=== PATIENT | female | born 1985 | race Two or more races ===

== ENCOUNTER 2022-03-03 13:45 | Inpatient (IN) | payer MEDICARE, MEDICAID, SELFPAY ==
[2022-03-03 13:59] VITALS: PULSE 83; RESP 18; TEMP 36.7; O2SAT 98; BMI 32.1
--- NOTE | 2022-03-03 13:59 | ED.PSYCH ---
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 Ethyl Alcohol mg/dL Influenza Type A (PCR) NEGATIVE (Negative) Influenza Type B (PCR) NEGATIVE (Negative) RSV RNA Qual (PCR) NEGATIVE (Negative) SARS-CoV-2 RNA (RT-PCR) NEGATIVE (Negative) <Fracisco Posey MD - Last Filed: 03/04/22 07:04> Discharge Plan Discharge Clinical Impression: Depression, Post-traumatic stress disorder <ADITYA Jones - Last Filed: 03/03/22 14:04> Patient Disposition: Still a Patient <ADITYA Jones - Last Filed: 03/03/22 14:04> Prescriptions: No Action cetirizine 10 mg tablet 1 tab PO DAILY fluticasone propionate 50 mcg/actuation spray,suspension 1 spray intranasal BID <ADITYA Jones - Last Filed: 03/03/22 14:04> Interventions: [place]-Suicide Risk Severity Scale Last Done: 03/04/22 05:25 <ADITYA Jones - Last Filed: 03/03/22 14:04>
--- NOTE | 2022-03-03 14:03 | ECG_ITS ---
Test Reason : SUBSTANCE ABUSE Blood Pressure : / mmHG Vent. Rate : 063 BPM Atrial Rate : 063 BPM P-R Int : 158 ms QRS Dur : 074 ms QT Int : 388 ms P-R-T Axes : 040 015 022 degrees QTc Int : 397 ms Artifact in tracing Normal sinus rhythm Likely normal EKG No previous ECGs available Referred By: Chasity Fong Electronically Signed By:SHIRA SALAS
[2022-03-03 14:17] LABS: MANUAL DIFF FLAG NO
[2022-03-03 14:22] LABS: Basophils Absolute Auto 0.1 X10*3/uL (0.0-0.2); Basophils Percent Auto 0.7 % (0-2); Eosinophils Absolute Auto 0.1 X10*3/uL (0.0-0.4); Eosinophils Percent Auto 1.1 % (0-4); Hematocrit 40.9 % (37.0-47.0); Hemoglobin 13.6 g/dl (12.0-16.0); Imm Gran Abs Auto 0.07 X10*3/uL (0.00-0.03); Imm Gran Pct Auto 0.5 % (0.0-0.4); Lymphocytes Absolute Auto 2.3 X10*3/uL (1.2-4.9); Lymphocytes Percent Auto 17.7 % (20-40); Mean Corpuscular HGB Conc 33.3 g/dl (31.0-35.0); Mean Corpuscular Hemoglobin 30.6 pg (27.0-33.0); Mean Corpuscular Volume 91.9 fL (80.0-98.0); Mean Platelet Volume 8.8 fL (9.4-12.3); Monocytes Absolute Auto 0.8 X10*3/uL (0.1-1.2); Monocytes Percent Auto 6.1 % (2-11); Neutrophils Absolute Auto 9.8 x10*3/uL (2.0-8.3); Neutrophils Percent Auto 73.9 % (45-73); Platelet Count 431 X10*3/uL (160-400); Red Blood Count 4.45 X10*6/uL (4.20-5.50); Red Cell Distribution Width 12.8 % (11.0-16.0); White Blood Count 13.2 X10*3/uL (4.8-10.8)
[2022-03-03 14:33] LABS: INTERNATIONAL NORM RATIO 1.1 (0.9-1.1); Prothrombin Time 12.6 SEC (10.0-13.1)
[2022-03-03 14:47] LABS: Alanine Aminotransferase 12 U/L (0-31); Albumin Level 4.3 g/dL (3.5-5.0); Alkaline Phosphatase 87 U/L (39-117); Anion Gap 11 (12-20); Aspartate Amino Transferase 21 U/L (5-31); Bilirubin Total 0.5 mg/dL (0.0-1.0); Blood Urea Nitrogen 8 mg/dL (9-16); Calcium 11.2 mg/dL (8.4-10.2); Carbon Dioxide 24 mmol/L (22-29); Chloride 107 mmol/L (96-108); Creatinine Clr Calc Pharmacy 123.3; Estimated Glomerular Filt Rate > 60; Ethanol < 10 mg/dL; Glucose Random 106 mg/dL (60-115); HCG Quantitative < 2 mIU/mL; Lipase 29 U/L (8-78); Magnesium 2.2 mg/dL (1.6-2.6); Potassium 4.3 mmol/L (3.3-5.1); Sodium 138 mmol/L (135-145); Total Protein 7.3 g/dL (6.5-8.0)
[2022-03-03 14:59] LABS: Influenza A PCR NEGATIVE (Negative); Influenza B PCR NEGATIVE (Negative); Resp Syncy Virus RNA Qual PCR NEGATIVE (Negative); SARS COV2 PCR INHOUSE NEGATIVE (Negative)
[2022-03-03 16:37] VITALS: RESP 18
--- NOTE | 2022-03-03 16:57 | PC.NURSE ---
Pt reports taking minipress/klonopin/seroquel/gabapentin/metformin/protonix/viseral/ativan. Unknown dosage. Last hospitalization. Per pt she does not use regular pharmacy.
[2022-03-03 16:59] LABS: Appearance Urine Turbid; Color Urine Yellow; Glucose Urine UA Negative (Negative); Leukocyte Esterase Urine Large (3+) (Negative); Nitrite Urine Negative (Negative); PH 6.5 (5.0-9.0); Specific Gravity - Urine 1.025 (1.005-1.025); UMIC TRIGGER UACC YES; Urine Blood Negative (Negative); Urine Ketones Trace mg/dL (Negative); Urine Protein Trace mg/dL (Neg-Trace)
[2022-03-03 17:05] LABS: Bacteria Urine 4+ (None Seen); Calcium Oxalate Crystals Urine Present; Hyaline Casts Urine 0-2 /LPF (0-2); Squamous Epithelial Cell Urine >20 /HPF (0-2); UACC Culture Trigger YES; WBC Urine >50 /HPF (0-5)
[2022-03-03 17:12] LABS: Amphetamine Screen Urine Not Detected (Not Detect); Barbiturates, Urine Not Detected (Not Detect); Benzodiazepines Screen Urine Not Detected (Not Detect); Cannabinoid Screen Urine POSITIVE (Not Detect); Cocaine Screen Urine POSITIVE (Not Detect); Fentanyl, urine POSITIVE (Not Detect); Opiate Screen Urine Not Detected (Not Detect); Phencyclidine Screen Urine Not Detected (Not Detect)
[2022-03-03] MEDS: LORazepam 1 MG TABLET PO (17:40)
[2022-03-03] MEDS: QUEtiapine Fumarate 50 MG TABLET PO (17:41)
[2022-03-03] MEDS: Nitrofurantoin Monohyd/M-Cryst 100 MG CAPSULE PO (20:13)
--- NOTE | 2022-03-04 05:26 | PC.NURSE ---
Patient slept through the night, no distress observed/reported, behavior isolative and non concerning, med rec completed/pending provider's approval, Medical record released form faxed to [facility] and no medical record received thus far, patient was assessed by care team disposition is Voluntary inpatient bed search, VSS, patient is + for UTI, Macrobid 100 mg BID was initiated, patient received her first dose last night, will continue to monitor.
[2022-03-04 06:27] VITALS: BP 131/84; PULSE 62; RESP 16; TEMP 36.6; O2SAT 98
[2022-03-04] MEDS: Nitrofurantoin Monohyd/M-Cryst 100 MG CAPSULE PO ×2 (08:48→20:06)
[2022-03-04] MEDS: LORazepam 1 MG TABLET PO (09:40)
[2022-03-04 16:08] LABS: CT PCR NOT DETECTED (Not Detect.)
[2022-03-04 16:09] LABS: NG PCR DETECTED (Not Detect.)
[2022-03-04] MEDS: QUEtiapine Fumarate 100 MG TABLET PO (20:06)
[2022-03-04] MEDS: LORazepam 1 MG TABLET 2 MG PO (20:07)
[2022-03-04 20:57] VITALS: BP 136/94; PULSE 81; RESP 18; TEMP 36.8; O2SAT 100
--- NOTE | 2022-03-04 21:25 | PC.NURSE ---
Patient was agitated over her medication, asking for her nighttime medication Serequel 300 mg which according to the patient she received last night when explained she has not received serequel last patient got loud and when asked to keep her voice low she got louder, she wants to speak with hospital management, charge nurse intervention requested, charge nurse spoke with patient, patient is not aware of what dose of Serequel she takes, provider notified/ordered Ativan 2 mg PO and Serequel 100 mg po/administered as ordered pending effect, requested Ed field secretary try one more time to get patient medical record from the [facility], this time we got received discharge paper work from [facility], patient was discharged to [facility] on 02/20/22, patient's pharmacy claim history shows no medication was picked up recently, however med rec completed based on discharge medication list, medical history also was updated, medical record from [facility] is in patient's chart for further reference, patient is currently resting quietly in her room, will continue to monitor.
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
[2022-03-05 06:49] VITALS: BP 108/56; PULSE 64; RESP 16; TEMP 36.9; O2SAT 98
[2022-03-05] MEDS: Nitrofurantoin Monohyd/M-Cryst 100 MG CAPSULE PO ×2 (07:35→20:47)
[2022-03-05] MEDS: QUEtiapine Fumarate 100 MG TABLET PO (16:12)
--- NOTE | 2022-03-05 18:37 | MHC.CARE ---
Care Team has exhausted bed search for pt.
[2022-03-05] MEDS: QUEtiapine Fumarate 200 MG TABLET PO (20:47)
[2022-03-05 21:11] VITALS: BP 116/81; PULSE 93; RESP 18; TEMP 36.8; O2SAT 98
--- NOTE | 2022-03-05 22:15 | PC.NURSE ---
Pt aox3 in no apparent distress. Pt medicated as ordered. Aware of plan of care. Will continue to monitor.
[2022-03-06 06:05] VITALS: BP 120/80; PULSE 75; RESP 16; TEMP 36.9; O2SAT 98
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
--- NOTE | 2022-03-06 07:22 | PC.NURSE ---
patient appears to remain asleep at present respirations are even and unlabored patient appears in no distress
[2022-03-06] MEDS: Gabapentin 300 MG CAPSULE 600 MG PO ×3 (08:46→21:08)
[2022-03-06] MEDS: Nitrofurantoin Monohyd/M-Cryst 100 MG CAPSULE PO ×2 (08:46→21:08)
[2022-03-06] MEDS: metFORMIN HCl 500 MG TABLET PO (08:46)
[2022-03-06] MEDS: Prazosin HCL 1 MG CAPSULE PO ×3 (08:46→21:08)
[2022-03-06] MEDS: Fluticasone Propionate Nasal 16 GM SPRAY 1 SPRAY NOSTRIL-B (08:46)
[2022-03-06] MEDS: Loratadine 10 MG TABLET PO (08:46)
[2022-03-06] MEDS: Omeprazole 20 MG CAPSULE.DR PO (08:47)
[2022-03-06] MEDS: clonazePAM 0.5 MG TABLET PO ×2 (08:47→21:08)
[2022-03-06 17:55] VITALS: BP 128/88; PULSE 77; RESP 16; TEMP 36.5
[2022-03-06] MEDS: hydrOXYzine HCL 50 MG TABLET PO (17:56)
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
[2022-03-06] MEDS: Prazosin HCL 1 MG CAPSULE 2 MG PO (21:08)
[2022-03-06] MEDS: QUEtiapine Fumarate 300 MG TABLET PO (21:08)
[2022-03-06] MEDS: Melatonin 3 MG TABLET 9 MG PO (21:08)
[2022-03-07 08:27] LABS: Estimated Average Glucose 94 mg/dL; Hemoglobin A1c % 4.9 %
[2022-03-07 08:30] VITALS: BP 116/67; PULSE 75; TEMP 36.7; O2SAT 100
[2022-03-07] MEDS: Nitrofurantoin Monohyd/M-Cryst 100 MG CAPSULE PO ×2 (08:35→20:40)
[2022-03-07] MEDS: metFORMIN HCl 500 MG TABLET PO (08:35)
[2022-03-07] MEDS: Omeprazole 20 MG CAPSULE.DR PO (08:35)
[2022-03-07] MEDS: Loratadine 10 MG TABLET PO (08:35)
[2022-03-07] MEDS: clonazePAM 0.5 MG TABLET PO ×2 (08:35→20:40)
[2022-03-07] MEDS: Fluticasone Propionate Nasal 16 GM SPRAY 1 SPRAY NOSTRIL-B ×2 (08:35→20:42)
[2022-03-07] MEDS: Gabapentin 300 MG CAPSULE 600 MG PO ×3 (08:36→20:39)
[2022-03-07] MEDS: Prazosin HCL 1 MG CAPSULE PO ×3 (08:36→20:39)
[2022-03-07 08:54] LABS: Cholesterol 143 mg/dL; HDL Cholesterol 43 mg/dL; LDL Cholesterol Calculated 75 mg/dl; Magnesium 1.9 mg/dL (1.6-2.6); Triglycerides 127 mg/dL
[2022-03-07 09:08] LABS: Thyroid Stimulating Hormone 1.46 uIU/mL (0.32-4.0)
[2022-03-07 13:03] LABS: Free T4 (Free Thyroxine) 0.87 ng/dL (0.71-1.85)
[2022-03-07] MEDS: hydrOXYzine HCL 50 MG TABLET PO ×2 (13:08→21:00)
[2022-03-07] MEDS: Albuterol Sulfate 90 MCG 8 GM INHALER 2 PUFF INHALE ×3 (13:08→20:38)
[2022-03-07 15:34] LABS: Folate 10.5 ng/mL (> or = 4.0); Vitamin B12 529 pg/mL (200-900)
--- NOTE | 2022-03-07 16:05 | HO.PSYADMNOT ---
HPI Date of Service: 03/07/22 Chief Complaint: Bipolar D/O w/Psychotic Features Depressed PTSD Sources of Information: patient interviewed, chart reviewed and crisis/core team assessment reviewed HPI Subjective Notes: [place] Warning and Conditional Voluntary Healthcare Proxy: No Guardianship: No Medical Problems Affecting Mental Status: No Narrative: 36 yo female, hx of bipolar disorder, PTSD, Autism reports an increase in sx of lability, anxiety, depression. I think I need a step down. Reports she feels ill equipped to live on her own due to not knowing what to do or how to handle life . States she has lost everything, and I don't know how to mange this. Reports no current supports, being alone, without medications, with recent discharge from [facility]. Has no PCP, out patient assignments and reports feeling not capable of managing at this time. Past Psychiatric History: IP: 40 admits between ages 9 to 27 4 admits since coming to [place] in Dec 2021 OP: Denies Trials: Several Medical Evaluation Reviewed: Yes [facility] Medical History (Updated 03/07/22 @ 18:16 by Ashlee Cyr, CHANELL) Amphetamine use disorder, moderate Autism Bipolar disorder Bipolar I disorder with anderson Cannabis use disorder Cocaine use disorder History of autism spectrum disorder Polysubstance use disorder Post traumatic stress disorder (PTSD) Schizoaffective disorder, bipolar type Tobacco use disorder Narrative: GERD IBS Asthma Arthritis Family History: mental health issues Social History: Born in [place] High school graduate Three children, with DCF Substance History: nicotine, cannabis, cocaine, amphetamines Trauma History: affirms Diagnostics Vital Signs (24Hr): Vital Signs - 24 hr 03/06/22 17:55 03/07/22 08:30 Temperature 97.7 F 98.1 F Pulse Rate 77 75 Respiratory Rate 16 Blood Pressure 128/88 116/67 Pulse Oximetry 100 Oxygen Delivery Method Room Air BMI result Body Mass Index 32.1 Labs Results: 03/03/22 14:14 03/03/22 14:14 Labs: Laboratory Results - last 48 hr 03/07/22 03/07/22 03/07/22 08:06 08:06 08:06 Estimat Average Glucose 94 Hemoglobin A1c % 4.9 Magnesium 1.9 Triglycerides 127 Cholesterol 143 LDL Cholesterol, Calc 75 HDL Cholesterol 43 Vitamin B12 529 Folate 10.5 TSH 1.46 Free T4 0.87 Meds/Allergies Meds Home Medications Medication Instructions Recorded Confirmed Type cetirizine 10 mg tablet 1 tab PO DAILY 03/03/22 03/03/22 History fluticasone propionate 50 1 spray intranasal BID 03/03/22 03/03/22 History mcg/actuation nasal spray,suspension albuterol 90 mcg/actuation aerosol 2 mcg inhalation QID 03/04/22 03/04/22 History inhaler clonazepam 0.5 mg tablet 0.5 mg PO BID 03/04/22 03/04/22 History gabapentin 300 mg capsule 600 mg PO TID 03/04/22 03/04/22 History hydroxyzine pamoate 50 mg capsule 50 mg PO QID PRN Anxiety 03/04/22 03/04/22 History melatonin 3 mg tablet 9 mg PO BEDTIME PRN Insomnia 03/04/22 03/04/22 History metformin 500 mg tablet 500 mg PO DAILY 03/04/22 03/04/22 History pantoprazole 40 mg tablet,delayed 40 mg PO DAILY 03/04/22 03/04/22 History release prazosin 1 mg capsule 1 mg PO TID 03/04/22 03/04/22 History prazosin 2 mg capsule 2 mg PO BEDTIME 03/04/22 03/04/22 History quetiapine 100 mg tablet 100 mg PO QAM 03/04/22 03/04/22 History quetiapine 300 mg tablet 300 mg PO BEDTIME 03/04/22 03/04/22 History trazodone 50 mg tablet 50 mg PO BEDTIME PRN Insomnia 03/04/22 03/04/22 History Allergies Allergies Allergy/AdvReac Type Severity Reaction Status Date / Time acetaminophen [From [place]] Allergy Palpitation Verified 03/03/22 17:02 s amitriptyline Allergy Palpitation Verified 03/03/22 17:02 s imipramine Allergy Palpitation Verified 03/03/22 17:02 s iodine Allergy Rash Verified 03/03/22 17:02 phenyltoloxamine [From [facility]] Allergy Palpitation Verified 03/03/22 17:02 s salicylamide [From [place]ac] Allergy Palpitation Verified 03/03/22 17:02 s Mental Status Exam Mental Status Exam Patient Appearance: Appropriate Patient Orientation: Person, Place, Time and Situation Level of Consciousness: Alert Patient Behavior: Talkative and Good Eye Contact Mood Description: Blunted Affect Description: Blunted Patient Cognition Impaired: No Ability to Follow Directions: Good Speech Pattern: Spontaneous Speech Memory Description: Episodic Impaired Hallucinations: None Delusions: Not Present Perceptual Disturbances: Depersonalization and Derealization Thought Process: Distracted Thought Content: positive for [place] and positive for Circumstantial Depressive Symptoms: Increased Anxiety, Diff. Making Decisions and Difficulty Concentrating Abnormal Motor Activity Signs and Symptoms: Restlessness Judgement: Fair Assessment & Plan Assessment & Plan (1) Post-traumatic stress disorder: Status: Acute Code(s): F43.10 - Post-traumatic stress disorder, unspecified (2) Bipolar disorder: Status: Acute Code(s): F31.9 - Bipolar disorder, unspecified (3) Polysubstance use disorder: Status: Acute Code(s): F19.90 - Other psychoactive substance use, unspecified, uncomplicated (4) Autism: Status: Acute Code(s): F84.0 - Autistic disorder Plan 36 yo female, hx of PTSD, Bipolar Disorder, ASD,Polysubstance Use Disorder. Recent discharge from [facility], stopped meds after discharge. Reports she is in need of more follow up treatment post hospitalization, a step down . Plan: Re-establish regime and assess efficacy Collateral contacts Discuss [facility] application for services with team Devin Gallo prn Debrox ear drops bid Patient educated on: medication risk/benefits and therapeutic strategies Informed Consent: further education needed Reason for continued inpatient stay Substantial Risk for: inability to function and rapid decompensation Statement Statement: I have reviewed the history and physical and performed a pertinent examination on my patient. No changes have occurred unless specified. If the History and Physical was not performed prior to admission, the Hospitalist's service will be consulted for completing the admission physical. Time Spent With Patient Time: Total time managing care of this patient today 50____ minutes.
[2022-03-07] MEDS: polyethylene glycoL 3350 17 GM POWD.PACK PO (17:24)
[2022-03-07] MEDS: Prazosin HCL 1 MG CAPSULE 2 MG PO (20:39)
[2022-03-07] MEDS: Docusate Sodium 100 MG CAPSULE PO (20:40)
[2022-03-07] MEDS: Carbamide Peroxide 6.5% Otic 15 ML DRPBTL 5 DROP EAR-BOTH (20:40)
[2022-03-07] MEDS: QUEtiapine Fumarate 300 MG TABLET PO (20:40)
[2022-03-07 20:45] VITALS: BP 137/87; PULSE 105; RESP 18; TEMP 36.2; O2SAT 99
[2022-03-07] MEDS: Melatonin 3 MG TABLET 9 MG PO (20:59)
[2022-03-08] MEDS: Gabapentin 300 MG CAPSULE 600 MG PO ×3 (08:28→21:04)
[2022-03-08] MEDS: Omeprazole 20 MG CAPSULE.DR PO (08:28)
[2022-03-08] MEDS: Nitrofurantoin Monohyd/M-Cryst 100 MG CAPSULE PO ×2 (08:28→21:03)
[2022-03-08] MEDS: Prazosin HCL 1 MG CAPSULE PO ×3 (08:28→21:04)
[2022-03-08] MEDS: clonazePAM 0.5 MG TABLET PO ×2 (08:28→21:04)
[2022-03-08] MEDS: Loratadine 10 MG TABLET PO (08:28)
[2022-03-08] MEDS: metFORMIN HCl 500 MG TABLET PO (08:28)
[2022-03-08 08:31] VITALS: BP 102/59; PULSE 63; TEMP 36.9; O2SAT 99
[2022-03-08] MEDS: Albuterol Sulfate 90 MCG 8 GM INHALER 2 PUFF INHALE ×3 (09:22→16:01)
[2022-03-08] MEDS: Fluticasone Propionate Nasal 16 GM SPRAY 1 SPRAY NOSTRIL-B ×2 (09:23→21:09)
[2022-03-08] MEDS: polyethylene glycoL 3350 17 GM POWD.PACK PO (09:26)
[2022-03-08] MEDS: Carbamide Peroxide 6.5% Otic 15 ML DRPBTL 5 DROP EAR-BOTH ×2 (09:50→21:09)
[2022-03-08] MEDS: hydrOXYzine HCL 50 MG TABLET PO ×3 (13:10→21:02)
[2022-03-08 14:52] VITALS: BP 132/68; PULSE 101
[2022-03-08 16:30] VITALS: BP 132/68; PULSE 101
--- NOTE | 2022-03-08 18:24 | HO.PSYCHPN ---
Subjective Subjective Date of Service: 03/08/22 Reason For Visit: Bipolar D/O w/Psychotic Features Depressed PTSD Subjective Notes: Conditional Voluntary Healthcare Proxy: No Guardianship: No Medical Problems Affecting Mental Status: No Interim History: Medication review with pt who asks to increase HS Prazosin to 3 mg which she takes at home. Review of Seroquel dosing and efficacy. Reports feeling safe on the unit. Discussed some of the difficulties she has relating to new people and situations Medication Compliance: Yes Side effects from medications: No Attending Groups: Intermittent Review of Systems Acute medical concerns: No Medical Review of Systems: unchanged Mental Status Exam Mental Status Exam Patient Appearance: Appropriate Patient Orientation: Person, Place, Time and Situation Level of Consciousness: Alert Patient Behavior: Talkative and Good Eye Contact Mood Description: Blunted Affect Description: Blunted Patient Cognition Impaired: No Ability to Follow Directions: Good Speech Pattern: Spontaneous Speech Memory Description: Episodic Impaired Hallucinations: None Delusions: Not Present Perceptual Disturbances: Depersonalization and Derealization Thought Process: Distracted Thought Content: positive for [place] and positive for Circumstantial Depressive Symptoms: Increased Anxiety, Diff. Making Decisions and Difficulty Concentrating Abnormal Motor Activity Signs and Symptoms: Restlessness Judgement: Fair Diagnostics Vital Signs (24Hr): Vital Signs - 24 hr 03/07/22 20:45 03/08/22 08:31 03/08/22 14:52 Temperature 97.1 F 98.5 F Pulse Rate 105 H 63 101 H Respiratory Rate 18 Blood Pressure 137/87 102/59 L 132/68 Pulse Oximetry 99 99 Oxygen Delivery Method Room Air Room Air 03/08/22 16:30 Temperature Pulse Rate 101 H Respiratory Rate Blood Pressure 132/68 Pulse Oximetry Oxygen Delivery Method BMI result Body Mass Index 32.1 Labs Results: 03/03/22 14:14 03/03/22 14:14 Labs: Laboratory Results - last 48 hr 03/07/22 03/07/22 03/07/22 08:06 08:06 08:06 Estimat Average Glucose 94 Hemoglobin A1c % 4.9 Magnesium 1.9 Triglycerides 127 Cholesterol 143 LDL Cholesterol, Calc 75 HDL Cholesterol 43 Vitamin B12 529 Folate 10.5 TSH 1.46 Free T4 0.87 Medications Medications Current Medications Al Hydroxide/Mg Hydroxide (Magnesium Hydrox/Alum Hydrox 30 Ml Oral.Susp) 30 ml PO Q6H PRN PRN Reason: Heartburn/Nausea Albuterol Sulfate (Albuterol Sulfate 90 Mcg 8 Gm Inhaler) 2 puff INHALE RQID [facility] Last Admin: 03/08/22 16:01 Dose: 2 puff Carbamide Peroxide (Carbamide Peroxide 6.5% Otic 15 Ml Drpbtl) 5 drop EAR-BOTH BID [facility] Stop: 03/11/22 17:57 Last Admin: 03/08/22 09:50 Dose: 5 drop Clonazepam (Clonazepam 0.5 Mg Tablet) 0.5 mg PO BID [facility] Last Admin: 03/08/22 08:28 Dose: 0.5 mg Docusate Sodium (Docusate Sodium 100 Mg Capsule) 100 mg PO BEDTIME [facility] Last Admin: 03/07/22 20:40 Dose: 100 mg Fluticasone Propionate (Fluticasone Propionate Nasal 16 Gm [place]) 1 spray NOSTRIL-B BID [facility] Last Admin: 03/08/22 09:23 Dose: 1 spray Gabapentin (Gabapentin 300 Mg Capsule) 600 mg PO TID [facility] Last Admin: 03/08/22 14:38 Dose: 600 mg Hydroxyzine HCl (Hydroxyzine Hcl 50 Mg Tablet) 50 mg PO QID PRN PRN Reason: Anxiety Last Admin: 03/08/22 18:18 Dose: 50 mg Loratadine (Loratadine 10 Mg Tablet) 10 mg PO DAILY [facility] Last Admin: 03/08/22 08:28 Dose: 10 mg Magnesium Hydroxide (Milk Of Magnesia 30 Ml Oral.Susp) 30 ml PO DAILY PRN PRN Reason: Constipation Melatonin (Melatonin 3 Mg Tablet) 9 mg PO BEDTIME PRN PRN Reason: Insomnia Last Admin: 03/07/22 20:59 Dose: 9 mg Metformin HCl (Metformin Hcl 500 Mg Tablet) 500 mg PO DAILY [facility] Last Admin: 03/08/22 08:28 Dose: 500 mg Nitrofurantoin Macrocrystals (Nitrofurantoin Monohyd/M-Cryst 100 Mg Capsule) 100 mg PO BID [facility] Last Admin: 03/08/22 08:28 Dose: 100 mg Omeprazole (Omeprazole 20 Mg Capsule.Dr) 20 mg PO DAILY [facility] Last Admin: 03/08/22 08:28 Dose: 20 mg Polyethylene Glycol (Polyethylene Glycol 3350 17 Gm Powd.Pack) 17 gm PO DAILY PRN PRN Reason: Constipation Last Admin: 03/08/22 09:26 Dose: 17 gm Prazosin HCl (Prazosin Hcl 1 Mg Capsule) 1 mg PO TID GHULAM; Protocol Last Admin: 03/08/22 14:38 Dose: 1 mg Prazosin HCl (Prazosin Hcl 1 Mg Capsule) 2 mg PO BEDTIME GHULAM; Protocol Last Admin: 03/07/22 20:39 Dose: 2 mg Quetiapine Fumarate (Quetiapine Fumarate 200 Mg Tablet) 200 mg PO BEDTIME GHULAM Last Admin: 03/07/22 20:08 Dose: Not Given Quetiapine Fumarate (Quetiapine Fumarate 300 Mg Tablet) 300 mg PO BEDTIME GHULAM Last Admin: 03/07/22 20:40 Dose: 300 mg Trazodone HCl (Trazodone Hcl 50 Mg Tablet) 50 mg PO BEDTIME PRN PRN Reason: Insomnia Allergies Allergies Allergy/AdvReac Type Severity Reaction Status Date / Time acetaminophen [From [place]ac] Allergy Palpitation Verified 03/03/22 17:02 s amitriptyline Allergy Palpitation Verified 03/03/22 17:02 s imipramine Allergy Palpitation Verified 03/03/22 17:02 s iodine Allergy Rash Verified 03/03/22 17:02 phenyltoloxamine [From [place]ac] Allergy Palpitation Verified 03/03/22 17:02 s salicylamide [From [place]ac] Allergy Palpitation Verified 03/03/22 17:02 s Assessment & Plan Assessment & Plan (1) Post-traumatic stress disorder: Status: Acute Code(s): F43.10 - Post-traumatic stress disorder, unspecified (2) Bipolar disorder: Status: Acute Code(s): F31.9 - Bipolar disorder, unspecified (3) Polysubstance use disorder: Status: Acute Code(s): F19.90 - Other psychoactive substance use, unspecified, uncomplicated (4) Autism: Status: Acute Code(s): F84.0 - Autistic disorder Plan 36 yo female, hx of PTSD, Bipolar Disorder, ASD,Polysubstance Use Disorder. Recent discharge from [facility], stopped meds after discharge. Reports she is in need of more follow up treatment post hospitalization, a step down . Plan: Re-establish regime and assess efficacy Collateral contacts Discuss [facility] application for services with team Devin Gallo prn Debrox ear drops bid 03/08/22- Continue current regime I spent minutes with the patient and/or on the patient floor today, greater than?50% of which was spent counseling/coordinating care. Patient educated on: medication risk/benefits and therapeutic strategies Informed Consent: further education needed Reason for contiued inpatient stay Substantial Risk for: rapid decompensation Time Spent With Patient Time: Total time managing care of this patient today __20__ minutes.
[2022-03-08] MEDS: Melatonin 3 MG TABLET 9 MG PO (21:02)
[2022-03-08] MEDS: Prazosin HCL 1 MG CAPSULE 3 MG PO (21:03)
[2022-03-08] MEDS: QUEtiapine Fumarate 300 MG TABLET PO (21:05)
[2022-03-08] MEDS: Docusate Sodium 100 MG CAPSULE PO (21:05)
[2022-03-08 21:11] VITALS: BP 135/71; PULSE 99
[2022-03-09] MEDS: Carbamide Peroxide 6.5% Otic 15 ML DRPBTL 5 DROP EAR-BOTH ×2 (09:13→21:32)
[2022-03-09] MEDS: Fluticasone Propionate Nasal 16 GM SPRAY 1 SPRAY NOSTRIL-B ×2 (09:13→21:32)
[2022-03-09] MEDS: Omeprazole 20 MG CAPSULE.DR PO (09:14)
[2022-03-09] MEDS: Gabapentin 300 MG CAPSULE 600 MG PO ×3 (09:14→21:14)
[2022-03-09] MEDS: Loratadine 10 MG TABLET PO (09:14)
[2022-03-09] MEDS: Nitrofurantoin Monohyd/M-Cryst 100 MG CAPSULE PO ×2 (09:14→21:14)
[2022-03-09] MEDS: Albuterol Sulfate 90 MCG 8 GM INHALER 2 PUFF INHALE (09:14)
[2022-03-09] MEDS: metFORMIN HCl 500 MG TABLET PO (09:15)
[2022-03-09] MEDS: Prazosin HCL 1 MG CAPSULE PO ×2 (09:15→14:16)
[2022-03-09] MEDS: clonazePAM 0.5 MG TABLET PO ×2 (09:15→21:17)
[2022-03-09 09:23] VITALS: BP 118/77; PULSE 103; RESP 18; TEMP 36.2; O2SAT 99
[2022-03-09] MEDS: Ibuprofen 600 MG TABLET PO (09:34)
[2022-03-09] MEDS: hydrOXYzine HCL 50 MG TABLET PO ×2 (13:26→21:14)
[2022-03-09 14:19] VITALS: BP 118/60; PULSE 85
[2022-03-09 18:00] VITALS: RESP 16
--- NOTE | 2022-03-09 18:54 | HO.PSYCHPN ---
Subjective Subjective Date of Service: 03/09/22 Reason For Visit: Bipolar D/O w/Psychotic Features Depressed PTSD Subjective Notes: Conditional Voluntary Healthcare Proxy: No Guardianship: No Medical Problems Affecting Mental Status: No Interim History: Per team, labile, angry, expecting team will find her permanent housing for discharge. Pt declines wanting to meet today-sleeping at 1600. Tolerating med regime thus far. Medication Compliance: Yes Side effects from medications: No Attending Groups: Intermittent Review of Systems Acute medical concerns: No Medical Review of Systems: unchanged Mental Status Exam Mental Status Exam Patient Appearance: Appropriate Patient Orientation: Person, Place, Time and Situation Level of Consciousness: Alert Patient Behavior: Talkative and Good Eye Contact Mood Description: Hostile, Labile, Blunted and Angry Affect Description: Labile and Blunted Patient Cognition Impaired: No Ability to Follow Directions: Good Speech Pattern: Spontaneous Speech Memory Description: Episodic Impaired Hallucinations: None Delusions: Not Present Perceptual Disturbances: Depersonalization and Derealization Thought Process: Distracted Thought Content: positive for [place] and positive for Circumstantial Depressive Symptoms: Increased Anxiety, Diff. Making Decisions and Difficulty Concentrating Abnormal Motor Activity Signs and Symptoms: Restlessness Judgement: Fair Diagnostics Vital Signs (24Hr): Vital Signs - 24 hr 03/08/22 21:11 03/09/22 09:23 03/09/22 14:19 Temperature 97.1 F Pulse Rate 99 103 H 85 Respiratory Rate 18 Blood Pressure 135/71 118/77 118/60 Pulse Oximetry 99 Oxygen Delivery Method Room Air BMI result Body Mass Index 32.1 Labs Results: 03/03/22 14:14 03/03/22 14:14 Medications Medications Current Medications Al Hydroxide/Mg Hydroxide (Magnesium Hydrox/Alum Hydrox 30 Ml Oral.Susp) 30 ml PO Q6H PRN PRN Reason: Heartburn/Nausea Albuterol Sulfate (Albuterol Sulfate 90 Mcg 8 Gm Inhaler) 2 puff INHALE RQID [facility], [facility] Last Admin: 03/09/22 13:26 Dose: Not Given Carbamide Peroxide (Carbamide Peroxide 6.5% Otic 15 Ml Drpbtl) 5 drop EAR-BOTH BID [facility]1983 Stop: 03/11/22 17:57 Last Admin: 03/09/22 09:13 Dose: 5 drop Clonazepam (Clonazepam 0.5 Mg Tablet) 0.5 mg PO BID [facility] Last Admin: 03/09/22 09:15 Dose: 0.5 mg Docusate Sodium (Docusate Sodium 100 Mg Capsule) 100 mg PO BEDTIME [facility] Last Admin: 03/08/22 21:05 Dose: 100 mg Fluticasone Propionate (Fluticasone Propionate Nasal 16 Gm [place]) 1 spray NOSTRIL-B BID [facility] Last Admin: 03/09/22 09:13 Dose: 1 spray Gabapentin (Gabapentin 300 Mg Capsule) 600 mg PO TID [facility] Last Admin: 03/09/22 14:27 Dose: 600 mg Hydroxyzine HCl (Hydroxyzine Hcl 50 Mg Tablet) 50 mg PO QID PRN PRN Reason: Anxiety Last Admin: 03/09/22 13:26 Dose: 50 mg Ibuprofen (Ibuprofen 600 Mg Tablet) 600 mg PO Q8H PRN PRN Reason: Pain, Mild (Pain Scale 1-3) Last Admin: 03/09/22 09:34 Dose: 600 mg Loratadine (Loratadine 10 Mg Tablet) 10 mg PO DAILY [facility] Last Admin: 03/09/22 09:14 Dose: 10 mg Magnesium Hydroxide (Milk Of Magnesia 30 Ml Oral.Susp) 30 ml PO DAILY PRN PRN Reason: Constipation Melatonin (Melatonin 3 Mg Tablet) 9 mg PO BEDTIME PRN PRN Reason: Insomnia Last Admin: 03/08/22 21:02 Dose: 9 mg Metformin HCl (Metformin Hcl 500 Mg Tablet) 500 mg PO DAILY [facility] Last Admin: 03/09/22 09:15 Dose: 500 mg Nitrofurantoin Macrocrystals (Nitrofurantoin Monohyd/M-Cryst 100 Mg Capsule) 100 mg PO BID [facility] Last Admin: 03/09/22 09:14 Dose: 100 mg Omeprazole (Omeprazole 20 Mg Capsule.Dr) 20 mg PO DAILY [facility] Last Admin: 03/09/22 09:14 Dose: 20 mg Polyethylene Glycol (Polyethylene Glycol 3350 17 Gm Powd.Pack) 17 gm PO DAILY PRN PRN Reason: Constipation Last Admin: 03/08/22 09:26 Dose: 17 gm Prazosin HCl (Prazosin Hcl 1 Mg Capsule) 1 mg PO TID [facility]; Protocol Last Admin: 03/09/22 14:16 Dose: 1 mg Prazosin HCl (Prazosin Hcl 1 Mg Capsule) 3 mg PO BEDTIME [facility]; Protocol Last Admin: 03/08/22 21:03 Dose: 3 mg Quetiapine Fumarate (Quetiapine Fumarate 300 Mg Tablet) 300 mg PO BEDTIME [facility] Last Admin: 03/08/22 21:05 Dose: 300 mg Trazodone HCl (Trazodone Hcl 50 Mg Tablet) 50 mg PO BEDTIME PRN PRN Reason: Insomnia Allergies Allergies Allergy/AdvReac Type Severity Reaction Status Date / Time acetaminophen [From [place]] Allergy Palpitation Verified 03/03/22 17:02 s amitriptyline Allergy Palpitation Verified 03/03/22 17:02 s imipramine Allergy Palpitation Verified 03/03/22 17:02 s iodine Allergy Rash Verified 03/03/22 17:02 phenyltoloxamine [From [facility]] Allergy Palpitation Verified 03/03/22 17:02 s salicylamide [From [facility]] Allergy Palpitation Verified 03/03/22 17:02 s Assessment & Plan Assessment & Plan (1) Post-traumatic stress disorder: Status: Acute Code(s): F43.10 - Post-traumatic stress disorder, unspecified (2) Bipolar disorder: Status: Acute Code(s): F31.9 - Bipolar disorder, unspecified (3) Polysubstance use disorder: Status: Acute Code(s): F19.90 - Other psychoactive substance use, unspecified, uncomplicated (4) Autism: Status: Acute Code(s): F84.0 - Autistic disorder Plan 36 yo female, hx of PTSD, Bipolar Disorder, ASD,Polysubstance Use Disorder. Recent discharge from [facility], stopped meds after discharge. Reports she is in need of more follow up treatment post hospitalization, a step down . Plan: Re-establish regime and assess efficacy Collateral contacts Discuss [facility] application for services with team Devin Gallo prn Debrox ear drops bid 03/08/22- Continue current regime 03/09/22- Continue current regime Informed Consent: understands Reason for contiued inpatient stay Substantial Risk for: rapid decompensation Time Spent With Patient Time: Total time managing care of this patient today __15__ minutes.
[2022-03-09] MEDS: Magnesium Hydrox/Alum Hydrox 30 ML ORAL.SUSP PO (20:02)
[2022-03-09] MEDS: Prazosin HCL 1 MG CAPSULE 3 MG PO (21:14)
[2022-03-09] MEDS: Docusate Sodium 100 MG CAPSULE PO (21:15)
[2022-03-09] MEDS: QUEtiapine Fumarate 300 MG TABLET PO (21:17)
[2022-03-10 06:00] VITALS: BP 111/59; PULSE 74; RESP 16; TEMP 36.8; O2SAT 96
[2022-03-10] MEDS: Omeprazole 20 MG CAPSULE.DR PO (08:28)
[2022-03-10] MEDS: Gabapentin 300 MG CAPSULE 600 MG PO ×3 (08:28→21:54)
[2022-03-10] MEDS: Prazosin HCL 1 MG CAPSULE PO ×2 (08:28→16:20)
[2022-03-10] MEDS: Nitrofurantoin Monohyd/M-Cryst 100 MG CAPSULE PO ×2 (08:28→21:54)
[2022-03-10] MEDS: clonazePAM 0.5 MG TABLET PO ×2 (08:28→21:53)
[2022-03-10] MEDS: metFORMIN HCl 500 MG TABLET PO (08:28)
[2022-03-10] MEDS: Loratadine 10 MG TABLET PO (08:28)
[2022-03-10] MEDS: Fluticasone Propionate Nasal 16 GM SPRAY 1 SPRAY NOSTRIL-B ×2 (09:35→21:54)
[2022-03-10] MEDS: hydrOXYzine HCL 50 MG TABLET PO ×2 (09:35→20:02)
[2022-03-10] MEDS: polyethylene glycoL 3350 17 GM POWD.PACK PO (09:35)
[2022-03-10 16:22] VITALS: BP 120/75
--- NOTE | 2022-03-10 16:29 | P.PNPSI_ITS ---
Subjective Subjective Date of Service: 03/10/22 Subjective Notes: Conditional Voluntary Healthcare Proxy: No Guardianship: No Medical Problems Affecting Mental Status: No Interim History: Discussed interventions. Medication Compliance: Yes 06:00 03/10/22 16:22 Review of Systems Acute medical concerns: No Mental Status Exam Mental Status Exam Blood Pressure 111/59 L 120/75 Pulse Oximetry 96 Affect Description: Labile and Blunted Speech Pattern: Spontaneous Speech Perceptual Disturbances: Depersonalization and Derealization Thought Process: Distracted Labs Diagnostics Vital Signs (24Hr): Vital Signs - 24 hr 03/09/22 18:00 03/10/22 06:00 03/10/22 16:22 Temperature 98.2 F Pulse Rate 74 Respiratory Rate 16 16 Blood Pressure 111/59 L 120/75 Pulse Oximetry 96 Oxygen Delivery Method Room Air BMI result Body Mass Index 32.1
--- NOTE | 2022-03-10 16:29 | HO.PSYCHPN ---
Subjective Subjective Date of Service: 03/10/22 Reason For Visit: Bipolar D/O w/Psychotic Features Depressed PTSD Subjective Notes: Conditional Voluntary Healthcare Proxy: No Guardianship: No Medical Problems Affecting Mental Status: No Interim History: Review of lability and mood sx. Pt having nightmares, easily irritated. Discussed interventions. Medication Compliance: Yes Side effects from medications: No Attending Groups: Intermittent Review of Systems Acute medical concerns: No Medical Review of Systems: unchanged Mental Status Exam Mental Status Exam Patient Appearance: Appropriate Patient Orientation: Person, Place, Time and Situation Level of Consciousness: Alert Patient Behavior: Talkative and Good Eye Contact Mood Description: Hostile, Labile, Blunted and Angry Affect Description: Labile and Blunted Patient Cognition Impaired: No Ability to Follow Directions: Good Speech Pattern: Spontaneous Speech Memory Description: Episodic Impaired Hallucinations: None Delusions: Not Present Perceptual Disturbances: Depersonalization and Derealization Thought Process: Distracted Thought Content: positive for [place] and positive for Circumstantial Depressive Symptoms: Increased Anxiety, Diff. Making Decisions and Difficulty Concentrating Abnormal Motor Activity Signs and Symptoms: Restlessness Judgement: Fair Diagnostics Vital Signs (24Hr): Vital Signs - 24 hr 03/09/22 18:00 03/10/22 06:00 03/10/22 16:22 Temperature 98.2 F Pulse Rate 74 Respiratory Rate 16 16 Blood Pressure 111/59 L 120/75 Pulse Oximetry 96 Oxygen Delivery Method Room Air BMI result Body Mass Index 32.1 Labs Results: 03/03/22 14:14 03/03/22 14:14 Medications Medications Current Medications Al Hydroxide/Mg Hydroxide (Magnesium Hydrox/Alum Hydrox 30 Ml Oral.Susp) 30 ml PO Q6H PRN PRN Reason: Heartburn/Nausea Last Admin: 03/09/22 20:02 Dose: 30 ml Albuterol Sulfate (Albuterol Sulfate 90 Mcg 8 Gm Inhaler) 2 puff INHALE RQID [facility] Last Admin: 03/10/22 12:42 Dose: Not Given Carbamide Peroxide (Carbamide Peroxide 6.5% Otic 15 Ml Drpbtl) 5 drop EAR-BOTH BID [facility] Stop: 03/11/22 17:57 Last Admin: 03/10/22 12:11 Dose: Not Given Clonazepam (Clonazepam 0.5 Mg Tablet) 0.5 mg PO BID [facility] Last Admin: 03/10/22 08:28 Dose: 0.5 mg Docusate Sodium (Docusate Sodium 100 Mg Capsule) 100 mg PO BEDTIME [facility] Last Admin: 03/09/22 21:15 Dose: 100 mg Fluticasone Propionate (Fluticasone Propionate Nasal 16 Gm [place]) 1 spray NOSTRIL-B BID [facility] Last Admin: 03/10/22 09:35 Dose: 1 spray Gabapentin (Gabapentin 300 Mg Capsule) 600 mg PO TID [facility] Last Admin: 03/10/22 14:21 Dose: Not Given Hydroxyzine HCl (Hydroxyzine Hcl 50 Mg Tablet) 50 mg PO QID PRN PRN Reason: Anxiety Last Admin: 03/10/22 09:35 Dose: 50 mg Ibuprofen (Ibuprofen 600 Mg Tablet) 600 mg PO Q8H PRN PRN Reason: Pain, Mild (Pain Scale 1-3) Last Admin: 03/09/22 09:34 Dose: 600 mg Loratadine (Loratadine 10 Mg Tablet) 10 mg PO DAILY [facility] Last Admin: 03/10/22 08:28 Dose: 10 mg Magnesium Hydroxide (Milk Of Magnesia 30 Ml Oral.Susp) 30 ml PO DAILY PRN PRN Reason: Constipation Melatonin (Melatonin 3 Mg Tablet) 9 mg PO BEDTIME PRN PRN Reason: Insomnia Last Admin: 03/08/22 21:02 Dose: 9 mg Metformin HCl (Metformin Hcl 500 Mg Tablet) 500 mg PO DAILY [facility] Last Admin: 03/10/22 08:28 Dose: 500 mg Nitrofurantoin Macrocrystals (Nitrofurantoin Monohyd/M-Cryst 100 Mg Capsule) 100 mg PO BID [facility] Last Admin: 03/10/22 08:28 Dose: 100 mg Omeprazole (Omeprazole 20 Mg Capsule.Dr) 20 mg PO DAILY [facility] Last Admin: 03/10/22 08:28 Dose: 20 mg Polyethylene Glycol (Polyethylene Glycol 3350 17 Gm Powd.Pack) 17 gm PO DAILY PRN PRN Reason: Constipation Last Admin: 03/10/22 09:35 Dose: 17 gm Prazosin HCl (Prazosin Hcl 1 Mg Capsule) 1 mg PO TID [facility]; Protocol Last Admin: 03/10/22 16:20 Dose: 1 mg Prazosin HCl (Prazosin Hcl 1 Mg Capsule) 3 mg PO BEDTIME [facility]; Protocol Last Admin: 03/09/22 21:14 Dose: 3 mg Quetiapine Fumarate (Quetiapine Fumarate 300 Mg Tablet) 300 mg PO BEDTIME [facility] Last Admin: 03/09/22 21:17 Dose: 300 mg Quetiapine Fumarate (Quetiapine Fumarate 100 Mg Tablet) 100 mg PO 0900,1500 [facility] Topiramate (Topiramate 25 Mg Tablet) 25 mg PO DAILY [facility] Trazodone HCl (Trazodone Hcl 50 Mg Tablet) 50 mg PO BEDTIME PRN PRN Reason: Insomnia Allergies Allergies Allergy/AdvReac Type Severity Reaction Status Date / Time acetaminophen [From [place]] Allergy Palpitation Verified 03/03/22 17:02 s amitriptyline Allergy Palpitation Verified 03/03/22 17:02 s imipramine Allergy Palpitation Verified 03/03/22 17:02 s iodine Allergy Rash Verified 03/03/22 17:02 phenyltoloxamine [From [facility]] Allergy Palpitation Verified 03/03/22 17:02 s salicylamide [From [place]] Allergy Palpitation Verified 03/03/22 17:02 s Assessment & Plan Assessment & Plan (1) Post-traumatic stress disorder: Status: Acute Code(s): F43.10 - Post-traumatic stress disorder, unspecified (2) Bipolar disorder: Status: Acute Code(s): F31.9 - Bipolar disorder, unspecified (3) Polysubstance use disorder: Status: Acute Code(s): F19.90 - Other psychoactive substance use, unspecified, uncomplicated (4) Autism: Status: Acute Code(s): F84.0 - Autistic disorder Plan 36 yo female, hx of PTSD, Bipolar Disorder, ASD,Polysubstance Use Disorder. Recent discharge from [facility], stopped meds after discharge. Reports she is in need of more follow up treatment post hospitalization, a step down . Plan: Re-establish regime and assess efficacy Collateral contacts Discuss [facility] application for services with team Devin Gallo prn Debrox ear drops bid 03/08/22- Continue current regime 03/09/22- Continue current regime 03/10/22- Add Seroquel 100 mg bid Topiramate 25 mg daily Patient educated on: medication risk/benefits and therapeutic strategies Informed Consent: understands and further education needed Reason for contiued inpatient stay Substantial Risk for: rapid decompensation Time Spent With Patient Time: Total time managing care of this patient today __20__ minutes.
[2022-03-10] MEDS: Magnesium Hydrox/Alum Hydrox 30 ML ORAL.SUSP PO (20:02)
[2022-03-10] MEDS: Ibuprofen 600 MG TABLET PO (20:02)
[2022-03-10] MEDS: Carbamide Peroxide 6.5% Otic 15 ML DRPBTL 5 DROP EAR-BOTH (21:52)
[2022-03-10] MEDS: QUEtiapine Fumarate 300 MG TABLET PO (21:53)
[2022-03-10] MEDS: Prazosin HCL 1 MG CAPSULE 3 MG PO (21:53)
[2022-03-10] MEDS: Docusate Sodium 100 MG CAPSULE PO (21:53)
[2022-03-10] MEDS: Albuterol Sulfate 90 MCG 8 GM INHALER 2 PUFF INHALE (21:54)
[2022-03-10 22:12] VITALS: BP 129/86; PULSE 92; RESP 18; TEMP 36.9
[2022-03-11] MEDS: Gabapentin 300 MG CAPSULE 600 MG PO ×3 (08:59→20:07)
[2022-03-11] MEDS: Topiramate 25 MG TABLET PO (08:59)
[2022-03-11] MEDS: QUEtiapine Fumarate 100 MG TABLET PO ×2 (09:00→14:13)
[2022-03-11] MEDS: Prazosin HCL 1 MG CAPSULE PO ×2 (09:00→14:13)
[2022-03-11] MEDS: Loratadine 10 MG TABLET PO (09:00)
[2022-03-11] MEDS: clonazePAM 0.5 MG TABLET PO ×2 (09:00→20:06)
[2022-03-11] MEDS: Albuterol Sulfate 90 MCG 8 GM INHALER 2 PUFF INHALE (09:00)
[2022-03-11] MEDS: Omeprazole 20 MG CAPSULE.DR PO (09:00)
[2022-03-11] MEDS: Nitrofurantoin Monohyd/M-Cryst 100 MG CAPSULE PO ×2 (09:00→20:11)
[2022-03-11] MEDS: metFORMIN HCl 500 MG TABLET PO (09:00)
[2022-03-11] MEDS: Fluticasone Propionate Nasal 16 GM SPRAY 1 SPRAY NOSTRIL-B (09:00)
[2022-03-11 09:04] VITALS: BP 130/87; PULSE 78; RESP 18; TEMP 36.3; O2SAT 97
[2022-03-11 09:14] LABS: Creatinine Clr Calc Pharmacy 123.3; Estimated Glomerular Filt Rate > 60
--- NOTE | 2022-03-11 11:22 | HO.PSYCHPN ---
Subjective Subjective Date of Service: 03/11/22 Reason For Visit: Bipolar D/O w/Psychotic Features Depressed PTSD Subjective Notes: Conditional Voluntary Healthcare Proxy: No Guardianship: No Medical Problems Affecting Mental Status: No Interim History: Patient was seen and discussed in rounds today. Records and plans were reviewed. She continues to be very irritable and labile. Eating and sleeping adequately. Tolerating the adjusted Seroquel dose. It was hard to engage her given the degree of irritability and some anger. Medication Compliance: Yes Side effects from medications: No Mental Status Exam Mental Status Exam Patient Appearance: Appropriate Patient Orientation: Person, Place, Time and Situation Level of Consciousness: Alert Patient Behavior: Talkative and Good Eye Contact Mood Description: Hostile, Labile, Blunted and Angry Affect Description: Labile and Blunted Patient Cognition Impaired: No Ability to Follow Directions: Good Speech Pattern: Spontaneous Speech Memory Description: Episodic Impaired Hallucinations: None Delusions: Not Present Perceptual Disturbances: Depersonalization and Derealization Thought Process: Distracted Thought Content: positive for [place] and positive for Circumstantial Depressive Symptoms: Increased Anxiety, Diff. Making Decisions and Difficulty Concentrating Abnormal Motor Activity Signs and Symptoms: Restlessness Judgement: Fair Diagnostics Vital Signs (24Hr): Vital Signs - 24 hr 03/10/22 16:22 03/10/22 22:12 03/11/22 09:04 Temperature 98.5 F 97.4 F Pulse Rate 92 78 Respiratory Rate 18 18 Blood Pressure 120/75 129/86 130/87 Pulse Oximetry 97 Oxygen Delivery Method Room Air Room Air BMI result Body Mass Index 32.1 Labs Results: 03/03/22 14:14 03/11/22 08:16 Labs: Laboratory Results - last 48 hr 03/11/22 08:16 Creatinine 0.83 Estim Creat Clear Calc 123.3 Estimated GFR > 60 Medications Medications Current Medications Al Hydroxide/Mg Hydroxide (Magnesium Hydrox/Alum Hydrox 30 Ml Oral.Susp) 30 ml PO Q6H PRN PRN Reason: Heartburn/Nausea Last Admin: 03/10/22 20:02 Dose: 30 ml Albuterol Sulfate (Albuterol Sulfate 90 Mcg 8 Gm Inhaler) 2 puff INHALE RQID [facility] Last Admin: 03/11/22 09:00 Dose: 2 puff Carbamide Peroxide (Carbamide Peroxide 6.5% Otic 15 Ml Drpbtl) 5 drop EAR-BOTH BID [facility] Stop: 03/11/22 17:57 Last Admin: 03/11/22 09:06 Dose: Not Given Clonazepam (Clonazepam 0.5 Mg Tablet) 0.5 mg PO BID [facility] Last Admin: 03/11/22 09:00 Dose: 0.5 mg Docusate Sodium (Docusate Sodium 100 Mg Capsule) 100 mg PO BEDTIME [facility] Last Admin: 03/10/22 21:53 Dose: 100 mg Fluticasone Propionate (Fluticasone Propionate Nasal 16 Gm [place]) 1 spray NOSTRIL-B BID [facility] Last Admin: 03/11/22 09:00 Dose: 1 spray Gabapentin (Gabapentin 300 Mg Capsule) 600 mg PO TID [facility] Last Admin: 03/11/22 08:59 Dose: 600 mg Hydroxyzine HCl (Hydroxyzine Hcl 50 Mg Tablet) 50 mg PO QID PRN PRN Reason: Anxiety Last Admin: 03/10/22 20:02 Dose: 50 mg Ibuprofen (Ibuprofen 600 Mg Tablet) 600 mg PO Q8H PRN PRN Reason: Pain, Mild (Pain Scale 1-3) Last Admin: 03/10/22 20:02 Dose: 600 mg Loratadine (Loratadine 10 Mg Tablet) 10 mg PO DAILY [facility] Last Admin: 03/11/22 09:00 Dose: 10 mg Magnesium Hydroxide (Milk Of Magnesia 30 Ml Oral.Susp) 30 ml PO DAILY PRN PRN Reason: Constipation Melatonin (Melatonin 3 Mg Tablet) 9 mg PO BEDTIME PRN PRN Reason: Insomnia Last Admin: 03/08/22 21:02 Dose: 9 mg Metformin HCl (Metformin Hcl 500 Mg Tablet) 500 mg PO DAILY [facility] Last Admin: 03/11/22 09:00 Dose: 500 mg Nitrofurantoin Macrocrystals (Nitrofurantoin Monohyd/M-Cryst 100 Mg Capsule) 100 mg PO BID [facility] Last Admin: 03/11/22 09:00 Dose: 100 mg Omeprazole (Omeprazole 20 Mg Capsule.Dr) 20 mg PO DAILY [facility] Last Admin: 03/11/22 09:00 Dose: 20 mg Polyethylene Glycol (Polyethylene Glycol 3350 17 Gm Powd.Pack) 17 gm PO DAILY PRN PRN Reason: Constipation Last Admin: 03/10/22 09:35 Dose: 17 gm Prazosin HCl (Prazosin Hcl 1 Mg Capsule) 1 mg PO TID [facility]; Protocol Last Admin: 03/11/22 09:00 Dose: 1 mg Prazosin HCl (Prazosin Hcl 1 Mg Capsule) 3 mg PO BEDTIME [facility]; Protocol Last Admin: 03/10/22 21:53 Dose: 3 mg Quetiapine Fumarate (Quetiapine Fumarate 300 Mg Tablet) 300 mg PO BEDTIME [facility] Last Admin: 03/10/22 21:53 Dose: 300 mg Quetiapine Fumarate (Quetiapine Fumarate 100 Mg Tablet) 100 mg PO 0900,1500 [facility] Last Admin: 03/11/22 09:00 Dose: 100 mg Topiramate (Topiramate 25 Mg Tablet) 25 mg PO DAILY [facility] Last Admin: 03/11/22 08:59 Dose: 25 mg Trazodone HCl (Trazodone Hcl 50 Mg Tablet) 50 mg PO BEDTIME PRN PRN Reason: Insomnia Allergies Allergies Allergy/AdvReac Type Severity Reaction Status Date / Time acetaminophen [From [facility]] Allergy Palpitation Verified 03/03/22 17:02 s amitriptyline Allergy Palpitation Verified 03/03/22 17:02 s imipramine Allergy Palpitation Verified 03/03/22 17:02 s iodine Allergy Rash Verified 03/03/22 17:02 phenyltoloxamine [From [facility]] Allergy Palpitation Verified 03/03/22 17:02 s salicylamide [From [facility]] Allergy Palpitation Verified 03/03/22 17:02 s Assessment & Plan Assessment & Plan (1) Post-traumatic stress disorder: Status: Acute Code(s): F43.10 - Post-traumatic stress disorder, unspecified (2) Bipolar disorder: Status: Acute Code(s): F31.9 - Bipolar disorder, unspecified (3) Polysubstance use disorder: Status: Acute Code(s): F19.90 - Other psychoactive substance use, unspecified, uncomplicated (4) Autism: Status: Acute Code(s): F84.0 - Autistic disorder Plan 36 yo female, hx of PTSD, Bipolar Disorder, ASD,Polysubstance Use Disorder. Recent discharge from [facility], stopped meds after discharge. Reports she is in need of more follow up treatment post hospitalization, a step down . Plan: Re-establish regime and assess efficacy Collateral contacts Discuss [facility] application for services with team Devin Gallo prn Debrox ear drops bid 03/08/22- Continue current regime 03/09/22- Continue current regime 03/10/22- Add Seroquel 100 mg bid Topiramate 25 mg daily 03/11: Continue current regimen and plans Reason for contiued inpatient stay Substantial Risk for: med/psych decompensation Time Spent With Patient Time: Total time managing care of this patient today ____ minutes.
[2022-03-11 14:15] VITALS: BP 118/59; PULSE 89
[2022-03-11] MEDS: Docusate Sodium 100 MG CAPSULE PO (20:06)
[2022-03-11] MEDS: Prazosin HCL 1 MG CAPSULE 3 MG PO (20:07)
[2022-03-11] MEDS: QUEtiapine Fumarate 300 MG TABLET PO (20:07)
[2022-03-11] MEDS: Ibuprofen 600 MG TABLET PO (20:09)
[2022-03-11 20:15] VITALS: BP 126/76; PULSE 81; TEMP 36.6; O2SAT 98
--- NOTE | 2022-03-12 07:37 | HO.PSYCHPN ---
Subjective Subjective Date of Service: 03/12/22 Reason For Visit: Bipolar D/O w/Psychotic Features Depressed PTSD Subjective Notes: Conditional Voluntary Healthcare Proxy: No Guardianship: No Medical Problems Affecting Mental Status: No Interim History: Patient was seen and discussed in rounds today. Records and plans were reviewed. She was quite loud, irritable and argumentative yesterday morning but finally was able to come down. She continues to be labile, having crying episodes. She is medication compliant. Anxiety has been better. Eating and sleeping adequately. She is requesting another moisturize in cream for her legs and breasts. Eucerin was ordered. No other changes were made. Medication Compliance: Yes Side effects from medications: No Review of Systems Review of Systems Dry skin Gastrointestinal: Reports constipation, Reports GI cramping, Reports dyspepsia, Reports heartburn and Reports diarrhea Comments: GERD, IBS Reports behavioral changes Psychiatric: Reports anxiety, Reports behavioral changes, Reports depression, Reports difficulty concentrating, Reports hopelessness, Reports irritability, Reports anhedonia and Reports mood swings Mental Status Exam Mental Status Exam Narrative: In today's visit she is alert, oriented and pleasant. Normal speech. Good eye contact. Affect is appropriate. No irritability. She is more interactive and pleasant. No SI. No signs of psychosis. Some irritability still present. Cognitively intact. Judgment is intact Diagnostics Vital Signs (24Hr): Vital Signs - 24 hr 03/11/22 09:04 03/11/22 14:15 03/11/22 20:15 Temperature 97.4 F 97.9 F Pulse Rate 78 89 81 Respiratory Rate 18 Blood Pressure 130/87 118/59 L 126/76 Pulse Oximetry 97 98 Oxygen Delivery Method Room Air Room Air BMI result Body Mass Index 32.1 Labs Results: 03/03/22 14:14 03/11/22 08:16 Labs: Laboratory Results - last 48 hr 03/11/22 08:16 Creatinine 0.83 Estim Creat Clear Calc 123.3 Estimated GFR > 60 Medications Medications Current Medications Al Hydroxide/Mg Hydroxide (Magnesium Hydrox/Alum Hydrox 30 Ml Oral.Susp) 30 ml PO Q6H PRN PRN Reason: Heartburn/Nausea Last Admin: 03/10/22 20:02 Dose: 30 ml Albuterol Sulfate (Albuterol Sulfate 90 Mcg 8 Gm Inhaler) 2 puff INHALE RQID [facility] Last Admin: 12/24/22 20:10 Dose: Not Given Clonazepam (Clonazepam 0.5 Mg Tablet) 0.5 mg PO BID [facility] Last Admin: 03/11/22 20:06 Dose: 0.5 mg Docusate Sodium (Docusate Sodium 100 Mg Capsule) 100 mg PO BEDTIME [facility] Last Admin: 03/11/22 20:06 Dose: 100 mg Fluticasone Propionate (Fluticasone Propionate Nasal 16 Gm [place]) 1 spray NOSTRIL-B BID [facility] Last Admin: 03/11/22 20:10 Dose: Not Given Gabapentin (Gabapentin 300 Mg Capsule) 600 mg PO TID [facility] Last Admin: 03/11/22 20:07 Dose: 600 mg Hydroxyzine HCl (Hydroxyzine Hcl 50 Mg Tablet) 50 mg PO QID PRN PRN Reason: Anxiety Last Admin: 03/10/22 20:02 Dose: 50 mg Ibuprofen (Ibuprofen 600 Mg Tablet) 600 mg PO Q8H PRN PRN Reason: Pain, Mild (Pain Scale 1-3) Last Admin: 03/11/22 20:09 Dose: 600 mg Loratadine (Loratadine 10 Mg Tablet) 10 mg PO DAILY [facility] Last Admin: 03/11/22 09:00 Dose: 10 mg Magnesium Hydroxide (Milk Of Magnesia 30 Ml Oral.Susp) 30 ml PO DAILY PRN PRN Reason: Constipation Melatonin (Melatonin 3 Mg Tablet) 9 mg PO BEDTIME PRN PRN Reason: Insomnia Last Admin: 03/08/22 21:02 Dose: 9 mg Metformin HCl (Metformin Hcl 500 Mg Tablet) 500 mg PO DAILY [facility] Last Admin: 03/11/22 09:00 Dose: 500 mg Nitrofurantoin Macrocrystals (Nitrofurantoin Monohyd/M-Cryst 100 Mg Capsule) 100 mg PO BID [facility] Last Admin: 03/11/22 20:11 Dose: 100 mg Omeprazole (Omeprazole 20 Mg Capsule.Dr) 20 mg PO DAILY [facility] Last Admin: 03/11/22 09:00 Dose: 20 mg Polyethylene Glycol (Polyethylene Glycol 3350 17 Gm Powd.Pack) 17 gm PO DAILY PRN PRN Reason: Constipation Last Admin: 03/10/22 09:35 Dose: 17 gm Prazosin HCl (Prazosin Hcl 1 Mg Capsule) 1 mg PO TID [facility]; Protocol Last Admin: 03/11/22 20:12 Dose: Not Given Prazosin HCl (Prazosin Hcl 1 Mg Capsule) 3 mg PO BEDTIME [facility]; Protocol Last Admin: 03/11/22 20:07 Dose: 3 mg Quetiapine Fumarate (Quetiapine Fumarate 300 Mg Tablet) 300 mg PO BEDTIME [facility] Last Admin: 03/11/22 20:07 Dose: 300 mg Quetiapine Fumarate (Quetiapine Fumarate 100 Mg Tablet) 100 mg PO 0900,1500 [facility] Last Admin: 03/11/22 14:13 Dose: 100 mg Topiramate (Topiramate 25 Mg Tablet) 25 mg PO DAILY [facility] Last Admin: 03/11/22 08:59 Dose: 25 mg Trazodone HCl (Trazodone Hcl 50 Mg Tablet) 50 mg PO BEDTIME PRN PRN Reason: Insomnia Allergies Allergies Allergy/AdvReac Type Severity Reaction Status Date / Time acetaminophen [From [place]] Allergy Palpitation Verified 03/03/22 17:02 s amitriptyline Allergy Palpitation Verified 03/03/22 17:02 s imipramine Allergy Palpitation Verified 03/03/22 17:02 s iodine Allergy Rash Verified 03/03/22 17:02 phenyltoloxamine [From [place]] Allergy Palpitation Verified 03/03/22 17:02 s salicylamide [From [place]] Allergy Palpitation Verified 03/03/22 17:02 s Assessment & Plan Assessment & Plan (1) Post-traumatic stress disorder: Status: Acute Code(s): F43.10 - Post-traumatic stress disorder, unspecified (2) Bipolar disorder: Status: Acute Code(s): F31.9 - Bipolar disorder, unspecified (3) Polysubstance use disorder: Status: Acute Code(s): F19.90 - Other psychoactive substance use, unspecified, uncomplicated (4) Autism: Status: Acute Code(s): F84.0 - Autistic disorder Plan 36 yo female, hx of PTSD, Bipolar Disorder, ASD,Polysubstance Use Disorder. Recent discharge from [facility], stopped meds after discharge. Reports she is in need of more follow up treatment post hospitalization, a step down . Plan: Re-establish regime and assess efficacy Collateral contacts Discuss [facility] application for services with team Devin Gallo prn Debrox ear drops bid 03/08/22- Continue current regime 03/09/22- Continue current regime 03/10/22- Add Seroquel 100 mg bid Topiramate 25 mg daily 03/11: Continue current regimen and plans 03/12: Continue current plans and regimen. Eucerin was ordered Guardian/Caregiver educated on: medication risk/benefits Reason for contiued inpatient stay Substantial Risk for: med/psych decompensation Time Spent With Patient Time: Total time managing care of this patient today ____ minutes.
[2022-03-12] MEDS: Fluticasone Propionate Nasal 16 GM SPRAY 1 SPRAY NOSTRIL-B ×2 (07:49→21:16)
[2022-03-12] MEDS: Gabapentin 300 MG CAPSULE 600 MG PO ×3 (07:49→21:19)
[2022-03-12] MEDS: Albuterol Sulfate 90 MCG 8 GM INHALER 2 PUFF INHALE ×3 (07:49→21:17)
[2022-03-12] MEDS: Omeprazole 20 MG CAPSULE.DR PO (07:50)
[2022-03-12] MEDS: Topiramate 25 MG TABLET PO (07:50)
[2022-03-12] MEDS: clonazePAM 0.5 MG TABLET PO ×2 (07:50→21:19)
[2022-03-12] MEDS: metFORMIN HCl 500 MG TABLET PO (07:50)
[2022-03-12] MEDS: Nitrofurantoin Monohyd/M-Cryst 100 MG CAPSULE PO ×2 (07:50→21:20)
[2022-03-12] MEDS: Prazosin HCL 1 MG CAPSULE PO ×2 (07:50→14:28)
[2022-03-12] MEDS: Loratadine 10 MG TABLET PO (07:51)
[2022-03-12] MEDS: QUEtiapine Fumarate 100 MG TABLET PO ×2 (07:51→14:28)
[2022-03-12 07:54] VITALS: BP 124/85; PULSE 122; RESP 18; TEMP 36.8; O2SAT 98
[2022-03-12 14:29] VITALS: BP 127/81; PULSE 112
[2022-03-12] MEDS: Ibuprofen 600 MG TABLET PO (14:43)
[2022-03-12 18:00] VITALS: RESP 16
[2022-03-12] MEDS: Magnesium Hydrox/Alum Hydrox 30 ML ORAL.SUSP PO (20:00)
[2022-03-12] MEDS: hydrOXYzine HCL 50 MG TABLET PO (20:00)
--- NOTE | 2022-03-12 20:07 | PC.NURSE ---
pt has an outburst earlier today at her nurse after the nurse told her to wait 5 minutes. pt yelled at staff for 15 minutes and was unredirectable. security was called and patient calmed down and went to her room.
[2022-03-12] MEDS: QUEtiapine Fumarate 300 MG TABLET PO (21:19)
[2022-03-12] MEDS: Prazosin HCL 1 MG CAPSULE 3 MG PO (21:20)
[2022-03-12 21:30] VITALS: BP 132/83; PULSE 101; TEMP 36.7; O2SAT 98
[2022-03-13] MEDS: Ibuprofen 600 MG TABLET PO ×2 (06:13→15:55)
[2022-03-13] MEDS: Albuterol Sulfate 90 MCG 8 GM INHALER 2 PUFF INHALE ×2 (06:15→20:45)
[2022-03-13 06:21] VITALS: BP 123/58; PULSE 105; RESP 18; TEMP 38.6; O2SAT 97
[2022-03-13] MEDS: Prazosin HCL 1 MG CAPSULE PO ×3 (10:16→20:45)
[2022-03-13] MEDS: Omeprazole 20 MG CAPSULE.DR PO (10:16)
[2022-03-13] MEDS: Gabapentin 300 MG CAPSULE 600 MG PO ×3 (10:16→20:44)
[2022-03-13] MEDS: Loratadine 10 MG TABLET PO (10:16)
[2022-03-13] MEDS: metFORMIN HCl 500 MG TABLET PO (10:16)
[2022-03-13] MEDS: clonazePAM 0.5 MG TABLET PO ×2 (10:16→20:44)
[2022-03-13] MEDS: Nitrofurantoin Monohyd/M-Cryst 100 MG CAPSULE PO ×2 (10:16→20:44)
[2022-03-13] MEDS: QUEtiapine Fumarate 100 MG TABLET PO ×2 (10:16→15:55)
[2022-03-13] MEDS: Topiramate 25 MG TABLET PO (10:16)
[2022-03-13] MEDS: Fluticasone Propionate Nasal 16 GM SPRAY 1 SPRAY NOSTRIL-B ×2 (10:17→20:45)
[2022-03-13 10:20] VITALS: BP 133/72; TEMP 36.6
--- NOTE | 2022-03-13 11:15 | HO.PSYCHPN ---
Subjective Subjective Date of Service: 03/13/22 Reason For Visit: Bipolar D/O w/Psychotic Features Depressed PTSD Subjective Notes: Conditional Voluntary Healthcare Proxy: No Guardianship: No Medical Problems Affecting Mental Status: No Interim History: Patient was seen and discussed in rounds today. Records and plans were reviewed. She has been doing little better. She does still have periods of irritability. She talked about some family struggles. No complaints or side. She was febrile last night but is feeling better today and was having a sore throat. A battery of tests for COVID, flu, RSV and strep were ordered. No other changes Medication Compliance: Yes Side effects from medications: No Review of Systems Review of Systems Upper respiratory symptoms and sore throat Yes all other systems are reviewed and are negative Mental Status Exam Mental Status Exam Narrative: In today's visit she is alert, oriented and pleasant. Normal speech. Good eye contact. Affect is appropriate. No irritability. She is more interactive and pleasant. No SI. No signs of psychosis. Some irritability still present. Cognitively intact. Judgment is intact Diagnostics Vital Signs (24Hr): Vital Signs - 24 hr 03/12/22 14:29 03/12/22 18:00 03/12/22 21:30 Temperature 98.1 F Pulse Rate 112 H 101 H Respiratory Rate 16 Blood Pressure 127/81 132/83 Pulse Oximetry 98 Oxygen Delivery Method Room Air 03/13/22 06:21 03/13/22 10:20 Temperature 101.4 F H 97.9 F Pulse Rate 105 H Respiratory Rate 18 Blood Pressure 123/58 L 133/72 Pulse Oximetry 97 Oxygen Delivery Method BMI result Body Mass Index 32.1 Labs Results: 03/03/22 14:14 03/11/22 08:16 Medications Medications Current Medications Al Hydroxide/Mg Hydroxide (Magnesium Hydrox/Alum Hydrox 30 Ml Oral.Susp) 30 ml PO Q6H PRN PRN Reason: Heartburn/Nausea Last Admin: 03/12/22 20:00 Dose: 30 ml Albuterol Sulfate (Albuterol Sulfate 90 Mcg 8 Gm Inhaler) 2 puff INHALE RQID [facility] Last Admin: 03/13/22 06:15 Dose: 2 puff Clonazepam (Clonazepam 0.5 Mg Tablet) 0.5 mg PO BID [facility] Last Admin: 03/13/22 10:16 Dose: 0.5 mg Docusate Sodium (Docusate Sodium 100 Mg Capsule) 100 mg PO BEDTIME [facility] Last Admin: 03/12/22 21:27 Dose: Not Given Fluticasone Propionate (Fluticasone Propionate Nasal 16 Gm [place]) 1 spray NOSTRIL-B BID [facility] Last Admin: 03/13/22 10:17 Dose: 1 spray Gabapentin (Gabapentin 300 Mg Capsule) 600 mg PO TID [facility] Last Admin: 03/13/22 10:16 Dose: 600 mg Hydroxyzine HCl (Hydroxyzine Hcl 50 Mg Tablet) 50 mg PO QID PRN PRN Reason: Anxiety Last Admin: 03/12/22 20:00 Dose: 50 mg Ibuprofen (Ibuprofen 600 Mg Tablet) 600 mg PO Q8H PRN PRN Reason: Pain, Mild (Pain Scale 1-3) Last Admin: 03/13/22 06:13 Dose: 600 mg Loratadine (Loratadine 10 Mg Tablet) 10 mg PO DAILY [facility] Last Admin: 03/13/22 10:16 Dose: 10 mg Magnesium Hydroxide (Milk Of Magnesia 30 Ml Oral.Susp) 30 ml PO DAILY PRN PRN Reason: Constipation Melatonin (Melatonin 3 Mg Tablet) 9 mg PO BEDTIME PRN PRN Reason: Insomnia Last Admin: 03/08/22 21:02 Dose: 9 mg Metformin HCl (Metformin Hcl 500 Mg Tablet) 500 mg PO DAILY [facility] Last Admin: 03/13/22 10:16 Dose: 500 mg Multi-Ingred Cream/Lotion/Oil/Oint (Mineral Oil/Petrolatum,White 106 Gm Tube) 1 appl TOPICAL BID PRN; Protocol PRN Reason: Dry Skin Nitrofurantoin Macrocrystals (Nitrofurantoin Monohyd/M-Cryst 100 Mg Capsule) 100 mg PO BID [facility] Last Admin: 03/13/22 10:16 Dose: 100 mg Omeprazole (Omeprazole 20 Mg Capsule.Dr) 20 mg PO DAILY [facility] Last Admin: 03/13/22 10:16 Dose: 20 mg Polyethylene Glycol (Polyethylene Glycol 3350 17 Gm Powd.Pack) 17 gm PO DAILY PRN PRN Reason: Constipation Last Admin: 03/10/22 09:35 Dose: 17 gm Prazosin HCl (Prazosin Hcl 1 Mg Capsule) 1 mg PO TID [facility]; Protocol Last Admin: 03/13/22 10:16 Dose: 1 mg Prazosin HCl (Prazosin Hcl 1 Mg Capsule) 3 mg PO BEDTIME [facility]; Protocol Last Admin: 03/12/22 21:20 Dose: 3 mg Quetiapine Fumarate (Quetiapine Fumarate 300 Mg Tablet) 300 mg PO BEDTIME [facility] Last Admin: 03/12/22 21:19 Dose: 300 mg Quetiapine Fumarate (Quetiapine Fumarate 100 Mg Tablet) 100 mg PO 0900,1500 [facility] Last Admin: 03/13/22 10:16 Dose: 100 mg Topiramate (Topiramate 25 Mg Tablet) 25 mg PO DAILY [facility] Last Admin: 03/13/22 10:16 Dose: 25 mg Trazodone HCl (Trazodone Hcl 50 Mg Tablet) 50 mg PO BEDTIME PRN PRN Reason: Insomnia Allergies Allergies Allergy/AdvReac Type Severity Reaction Status Date / Time acetaminophen [From [place]] Allergy Palpitation Verified 03/03/22 17:02 s amitriptyline Allergy Palpitation Verified 03/03/22 17:02 s imipramine Allergy Palpitation Verified 03/03/22 17:02 s iodine Allergy Rash Verified 03/03/22 17:02 phenyltoloxamine [From [place]] Allergy Palpitation Verified 03/03/22 17:02 s salicylamide [From [place]] Allergy Palpitation Verified 03/03/22 17:02 s Assessment & Plan Assessment & Plan (1) Post-traumatic stress disorder: Status: Acute Code(s): F43.10 - Post-traumatic stress disorder, unspecified (2) Bipolar disorder: Status: Acute Code(s): F31.9 - Bipolar disorder, unspecified (3) Polysubstance use disorder: Status: Acute Code(s): F19.90 - Other psychoactive substance use, unspecified, uncomplicated (4) Autism: Status: Acute Code(s): F84.0 - Autistic disorder Plan 36 yo female, hx of PTSD, Bipolar Disorder, ASD,Polysubstance Use Disorder. Recent discharge from [facility], stopped meds after discharge. Reports she is in need of more follow up treatment post hospitalization, a step down . Plan: Re-establish regime and assess efficacy Collateral contacts Discuss [facility] application for services with team Devni Gallo prn Debrox ear drops bid 03/08/22- Continue current regime 03/09/22- Continue current regime 03/10/22- Add Seroquel 100 mg bid Topiramate 25 mg daily 03/11: Continue current regimen and plans 03/12: Continue current plans and regimen. Eucerin was ordered 03/13: Continue current regimen and plans. Rapid tests for various antigens ordered Reason for contiued inpatient stay Substantial Risk for: med/psych decompensation Time Spent With Patient Time: Total time managing care of this patient today ____ minutes.
[2022-03-13 12:51] LABS: Influenza A PCR NEGATIVE (Negative); Influenza B PCR NEGATIVE (Negative); Resp Syncy Virus RNA Qual PCR NEGATIVE (Negative); SARS COV2 PCR INHOUSE POSITIVE (Negative)
[2022-03-13 12:51] LABS: Strep A Nucleic Acid Negative (Negative)
[2022-03-13] MEDS: hydrOXYzine HCL 50 MG TABLET PO ×2 (15:55→20:45)
[2022-03-13 16:09] VITALS: BP 128/76; PULSE 95; TEMP 36.9; O2SAT 98
[2022-03-13] MEDS: QUEtiapine Fumarate 300 MG TABLET PO (20:44)
[2022-03-13] MEDS: Docusate Sodium 100 MG CAPSULE PO (20:44)
[2022-03-13] MEDS: Prazosin HCL 1 MG CAPSULE 3 MG PO (20:45)
[2022-03-13] MEDS: Melatonin 3 MG TABLET 9 MG PO (21:21)
[2022-03-14] MEDS: Ibuprofen 600 MG TABLET PO ×3 (02:30→21:28)
[2022-03-14 08:11] VITALS: BP 130/62; PULSE 102; RESP 20; TEMP 37; O2SAT 98
[2022-03-14] MEDS: Omeprazole 20 MG CAPSULE.DR PO (08:36)
[2022-03-14] MEDS: Prazosin HCL 1 MG CAPSULE PO ×2 (08:36→15:08)
[2022-03-14] MEDS: Topiramate 25 MG TABLET PO (08:36)
[2022-03-14] MEDS: clonazePAM 0.5 MG TABLET PO ×2 (08:36→19:39)
[2022-03-14] MEDS: Gabapentin 300 MG CAPSULE 600 MG PO ×3 (08:36→19:40)
[2022-03-14] MEDS: Loratadine 10 MG TABLET PO (08:36)
[2022-03-14] MEDS: metFORMIN HCl 500 MG TABLET PO (08:37)
[2022-03-14] MEDS: QUEtiapine Fumarate 100 MG TABLET PO ×2 (08:39→15:08)
[2022-03-14] MEDS: hydrOXYzine HCL 50 MG TABLET PO ×4 (08:42→22:07)
--- NOTE | 2022-03-14 12:38 | P.PNPSI_ITS ---
Subjective Subjective Date of Service: 03/14/22 Reason For Visit: Bipolar D/O w/Psychotic Features Depressed PTSD Subjective Notes: Conditional Voluntary Healthcare Proxy: No Guardianship: No Medical Problems Affecting Mental Status: No Interim History: COVID + with active sx. Pt reports feeling very ill. In addiction, pt has initiated menses, which is making sx intensify. Pt resting, taking fluids, eating well. Sleep helps . Reports increase in anxiety/agitation. Refuses Chlorpromazine given by team over the weekend. TDN to 03/16 Medication Compliance: Yes Side effects from medications: No Attending Groups: No Review of Systems Acute medical concerns: No Medical Review of Systems: unchanged Mental Status Exam Mental Status Exam Patient Appearance: Fatigued Patient Orientation: Person, Place, Time and Situation Level of Consciousness: Alert Patient Behavior: Appropriate, Talkative and Cooperative Mood Description: Labile Affect Description: Labile Patient Cognition Impaired: No Ability to Follow Directions: Good Speech Pattern: Clear and Spontaneous Speech Memory Description: Intact Hallucinations: None Delusions: Not Present Thought Process: Intact Thought Content: positive for Intact Depressive Symptoms: Increased Irritability, Increased Fatigue and Loss of Energy Judgement: Good Diagnostics Vital Signs (24Hr): Vital Signs - 24 hr 03/13/22 16:09 03/14/22 08:11 Temperature 98.5 F 98.6 F Pulse Rate 95 102 H Respiratory Rate 20 Blood Pressure 128/76 130/62 Pulse Oximetry 98 98 Oxygen Delivery Method Room Air BMI result Body Mass Index 32.1 Labs Results: 03/03/22 14:14 03/11/22 08:16 Labs: Laboratory Results - last 48 hr 03/13/22 03/13/22 12:00 Unknown Influenza Type A (PCR) NEGATIVE Influenza Type B (PCR) NEGATIVE RSV RNA Qual (PCR) NEGATIVE SARS-CoV-2 RNA (RT-PCR) POSITIVE A S. pyogenes GrpA [place]ILEY Negative Medications Medications Current Medications Al Hydroxide/Mg Hydroxide (Magnesium Hydrox/Alum Hydrox 30 Ml Oral.Susp) 30 ml PO Q6H PRN PRN Reason: Heartburn/Nausea Last Admin: 03/12/22 20:00 Dose: 30 ml Albuterol Sulfate (Albuterol Sulfate 90 Mcg 8 Gm Inhaler) 2 puff INHALE RQID [facility] Last Admin: 03/14/22 08:48 Dose: Not Given Chlorpromazine HCl (Chlorpromazine Hcl 100 Mg Tablet) 50 mg PO Q2H PRN PRN Reason: agitation Clonazepam (Clonazepam 0.5 Mg Tablet) 0.5 mg PO BID [facility] Last Admin: 03/14/22 08:36 Dose: 0.5 mg Docusate Sodium (Docusate Sodium 100 Mg Capsule) 100 mg PO BEDTIME [facility] Last Admin: 03/13/22 20:44 Dose: 100 mg Fluticasone Propionate (Fluticasone Propionate Nasal 16 Gm [place]) 1 spray NOSTRIL-B BID [facility] Last Admin: 03/14/22 08:48 Dose: Not Given Gabapentin (Gabapentin 300 Mg Capsule) 600 mg PO TID [facility] Last Admin: 03/14/22 08:36 Dose: 600 mg Hydroxyzine HCl (Hydroxyzine Hcl 50 Mg Tablet) 50 mg PO QID PRN PRN Reason: Anxiety Last Admin: 03/14/22 08:42 Dose: 50 mg Ibuprofen (Ibuprofen 600 Mg Tablet) 600 mg PO Q8H PRN PRN Reason: Pain, Mild (Pain Scale 1-3) Last Admin: 03/14/22 08:42 Dose: 600 mg Loratadine (Loratadine 10 Mg Tablet) 10 mg PO DAILY [facility] Last Admin: 03/14/22 08:36 Dose: 10 mg Magnesium Hydroxide (Milk Of Magnesia 30 Ml Oral.Susp) 30 ml PO DAILY PRN PRN Reason: Constipation Melatonin (Melatonin 3 Mg Tablet) 9 mg PO BEDTIME PRN PRN Reason: Insomnia Last Admin: 03/13/22 21:21 Dose: 9 mg Metformin HCl (Metformin Hcl 500 Mg Tablet) 500 mg PO DAILY [facility] Last Admin: 03/14/22 08:37 Dose: 500 mg Multi-Ingred Cream/Lotion/Oil/Oint (Mineral Oil/Petrolatum,White 106 Gm Tube) 1 appl TOPICAL BID PRN; Protocol PRN Reason: Dry Skin Omeprazole (Omeprazole 20 Mg Capsule.Dr) 20 mg PO DAILY [facility] Last Admin: 03/14/22 08:36 Dose: 20 mg Polyethylene Glycol (Polyethylene Glycol 3350 17 Gm Powd.Pack) 17 gm PO DAILY PRN PRN Reason: Constipation Last Admin: 03/10/22 09:35 Dose: 17 gm Prazosin HCl (Prazosin Hcl 1 Mg Capsule) 1 mg PO TID [facility]; Protocol Last Admin: 03/14/22 08:36 Dose: 1 mg Prazosin HCl (Prazosin Hcl 1 Mg Capsule) 3 mg PO BEDTIME [facility]; Protocol Last Admin: 03/13/22 20:45 Dose: 3 mg Quetiapine Fumarate (Quetiapine Fumarate 300 Mg Tablet) 300 mg PO BEDTIME [facility] Last Admin: 03/13/22 20:44 Dose: 300 mg Quetiapine Fumarate (Quetiapine Fumarate 100 Mg Tablet) 100 mg PO 0900,1500 [facility] Last Admin: 03/14/22 08:39 Dose: 100 mg Topiramate (Topiramate 25 Mg Tablet) 25 mg PO DAILY [facility] Last Admin: 03/14/22 08:36 Dose: 25 mg Trazodone HCl (Trazodone Hcl 50 Mg Tablet) 50 mg PO BEDTIME PRN PRN Reason: Insomnia Allergies Allergies Allergy/AdvReac Type Severity Reaction Status Date / Time acetaminophen [From [place]] Allergy Palpitation Verified 03/03/22 17:02 s amitriptyline Allergy Palpitation Verified 03/03/22 17:02 s imipramine Allergy Palpitation Verified 03/03/22 17:02 s iodine Allergy Rash Verified 03/03/22 17:02 phenyltoloxamine [From [place]] Allergy Palpitation Verified 03/03/22 17:02 s salicylamide [From [place]] Allergy Palpitation Verified 03/03/22 17:02 s Assessment & Plan Assessment & Plan (1) Post-traumatic stress disorder: Status: Acute Code(s): F43.10 - Post-traumatic stress disorder, unspecified (2) Bipolar disorder: Status: Acute Code(s): F31.9 - Bipolar disorder, unspecified (3) Polysubstance use disorder: Status: Acute Code(s): F19.90 - Other psychoactive substance use, unspecified, uncomplicated (4) Autism: Status: Acute Code(s): F84.0 - Autistic disorder Plan 36 yo female, hx of PTSD, Bipolar Disorder, ASD,Polysubstance Use Disorder. Recent discharge from [facility], stopped meds after discharge. Reports she is in need of more follow up treatment post hospitalization, a step down . Plan: Re-establish regime and assess efficacy Collateral contacts Discuss [facility] application for services with team Mirbetty Colace prn Debrox ear drops bid 03/08/22- Continue current regime 03/09/22- Continue current regime 03/10/22- Add Seroquel 100 mg bid Topiramate 25 mg daily 03/11: Continue current regimen and plans 03/12: Continue current plans and regimen. Eucerin was ordered 03/13: Continue current regimen and plans. Rapid tests for various antigens ordered 03/14/22: Lorazepam bid prn agitation Change Prazosin to 1 mg bid and 3 mg hs Patient educated on: medication risk/benefits and therapeutic strategies Informed Consent: understands and further education needed Reason for contiued inpatient stay Substantial Risk for: med/psych decompensation Time Spent With Patient Time: Total time managing care of this patient today _15___ minutes.
[2022-03-14] MEDS: Acetaminophen 325 MG TABLET 650 MG PO (13:14)
[2022-03-14] MEDS: LORazepam 1 MG TABLET PO ×2 (15:45→21:27)
[2022-03-14] MEDS: Docusate Sodium 100 MG CAPSULE PO (19:39)
[2022-03-14] MEDS: Prazosin HCL 1 MG CAPSULE 3 MG PO (19:39)
[2022-03-14] MEDS: QUEtiapine Fumarate 300 MG TABLET PO (19:40)
[2022-03-14] MEDS: Albuterol Sulfate 90 MCG 8 GM INHALER 2 PUFF INHALE (19:43)
[2022-03-14] MEDS: Fluticasone Propionate Nasal 16 GM SPRAY 1 SPRAY NOSTRIL-B (19:43)
[2022-03-15] MEDS: clonazePAM 0.5 MG TABLET PO ×2 (09:13→20:44)
[2022-03-15] MEDS: Omeprazole 20 MG CAPSULE.DR PO (09:13)
[2022-03-15] MEDS: Gabapentin 300 MG CAPSULE 600 MG PO ×3 (09:13→20:44)
[2022-03-15] MEDS: metFORMIN HCl 500 MG TABLET PO (09:13)
[2022-03-15] MEDS: Topiramate 25 MG TABLET PO (09:14)
[2022-03-15] MEDS: Loratadine 10 MG TABLET PO (09:14)
[2022-03-15] MEDS: QUEtiapine Fumarate 100 MG TABLET PO ×2 (09:14→14:55)
[2022-03-15] MEDS: Prazosin HCL 1 MG CAPSULE PO ×2 (09:31→14:55)
[2022-03-15] MEDS: Ibuprofen 600 MG TABLET PO ×2 (09:34→21:39)
[2022-03-15] MEDS: LORazepam 1 MG TABLET PO ×2 (09:34→20:44)
[2022-03-15] MEDS: hydrOXYzine HCL 50 MG TABLET PO ×3 (09:35→20:45)
[2022-03-15 10:08] VITALS: BP 125/77; PULSE 75; RESP 16; TEMP 36.9; O2SAT 96
[2022-03-15 15:09] VITALS: BP 124/76; PULSE 76; RESP 16; TEMP 36.8; O2SAT 96
[2022-03-15] MEDS: Acetaminophen 325 MG TABLET 650 MG PO ×2 (15:10→21:40)
--- NOTE | 2022-03-15 17:26 | P.PNPSI_ITS ---
Subjective Subjective Date of Service: 03/16/22 Reason For Visit: Bipolar D/O w/Psychotic Features Depressed PTSD Subjective Notes: Conditional Voluntary Healthcare Proxy: No Guardianship: No Medical Problems Affecting Mental Status: No Interim History: Expressed anger and frustration with mental health services in [facility]. Expects to have housing, PCP, therapy, psychiatry and a daily worker to assist her. Discussed how the system [facility] not provide for this I deserve and want LTC Discussed with team who will apply for a [facility]SP worker for support. Medication Compliance: Yes Side effects from medications: No Attending Groups: No Review of Systems Acute medical concerns: No Medical Review of Systems: unchanged Mental Status Exam Mental Status Exam Patient Appearance: Fatigued Patient Orientation: Person, Place, Time and Situation Level of Consciousness: Alert Patient Behavior: Appropriate, Talkative, Cooperative and Aggressive Mood Description: Hostile, Labile and Angry Affect Description: Hostile, Labile and Angry Patient Cognition Impaired: No Ability to Follow Directions: Good Speech Pattern: Clear and Spontaneous Speech Memory Description: Intact Hallucinations: None Delusions: Not Present Perceptual Disturbances: Derealization Thought Process: Intact Thought Content: positive for Intact Depressive Symptoms: Increased Irritability, Increased Fatigue and Loss of Energy Judgement: Good Diagnostics Vital Signs (24Hr): Vital Signs - 24 hr 03/15/22 10:08 03/15/22 15:09 Temperature 98.5 F 98.2 F Pulse Rate 75 76 Respiratory Rate 16 16 Blood Pressure 125/77 124/76 Pulse Oximetry 96 96 Oxygen Delivery Method Room Air Room Air BMI result Body Mass Index 32.1 Labs Results: 03/03/22 14:14 03/11/22 08:16 Medications Medications Current Medications Acetaminophen (Acetaminophen 325 Mg Tablet) 650 mg PO Q6H PRN PRN Reason: fever, pain Last Admin: 03/15/22 15:10 Dose: 650 mg Al Hydroxide/Mg Hydroxide (Magnesium Hydrox/Alum Hydrox 30 Ml Oral.Susp) 30 ml PO Q6H PRN PRN Reason: Heartburn/Nausea Last Admin: 03/12/22 20:00 Dose: 30 ml Albuterol Sulfate (Albuterol Sulfate 90 Mcg 8 Gm Inhaler) 2 puff INHALE RQID [facility] Last Admin: 03/15/22 16:25 Dose: Not Given Chlorpromazine HCl (Chlorpromazine Hcl 100 Mg Tablet) 50 mg PO Q2H PRN PRN Reason: agitation Clonazepam (Clonazepam 0.5 Mg Tablet) 0.5 mg PO BID [facility] Last Admin: 03/15/22 09:13 Dose: 0.5 mg Docusate Sodium (Docusate Sodium 100 Mg Capsule) 100 mg PO BEDTIME [facility] Last Admin: 03/14/22 19:39 Dose: 100 mg Fluticasone Propionate (Fluticasone Propionate Nasal 16 Gm [place]) 1 spray NOSTRIL-B BID [facility] Last Admin: 03/15/22 09:32 Dose: Not Given Gabapentin (Gabapentin 300 Mg Capsule) 600 mg PO TID [facility] Last Admin: 03/15/22 14:55 Dose: 600 mg Hydroxyzine HCl (Hydroxyzine Hcl 50 Mg Tablet) 50 mg PO QID PRN PRN Reason: Anxiety Last Admin: 03/15/22 15:08 Dose: 50 mg Ibuprofen (Ibuprofen 600 Mg Tablet) 600 mg PO Q8H PRN PRN Reason: Pain, Mild (Pain Scale 1-3) Last Admin: 03/15/22 09:34 Dose: 600 mg Loratadine (Loratadine 10 Mg Tablet) 10 mg PO DAILY [facility] Last Admin: 03/15/22 09:14 Dose: 10 mg Lorazepam (Lorazepam 1 Mg Tablet) 1 mg PO BID PRN PRN Reason: severe anxiety,agitation Last Admin: 03/15/22 09:34 Dose: 1 mg Magnesium Hydroxide (Milk Of Magnesia 30 Ml Oral.Susp) 30 ml PO DAILY PRN PRN Reason: Constipation Melatonin (Melatonin 3 Mg Tablet) 9 mg PO BEDTIME PRN PRN Reason: Insomnia Last Admin: 03/13/22 21:21 Dose: 9 mg Metformin HCl (Metformin Hcl 500 Mg Tablet) 500 mg PO DAILY [facility] Last Admin: 03/15/22 09:13 Dose: 500 mg Multi-Ingred Cream/Lotion/Oil/Oint (Mineral Oil/Petrolatum,White 106 Gm Tube) 1 appl TOPICAL BID PRN; Protocol PRN Reason: Dry Skin Last Admin: 03/15/22 09:34 Dose: 1 appl Omeprazole (Omeprazole 20 Mg Capsule.Dr) 20 mg PO DAILY [facility] Last Admin: 03/15/22 09:13 Dose: 20 mg Polyethylene Glycol (Polyethylene Glycol 3350 17 Gm Powd.Pack) 17 gm PO DAILY PRN PRN Reason: Constipation Last Admin: 03/10/22 09:35 Dose: 17 gm Prazosin HCl (Prazosin Hcl 1 Mg Capsule) 3 mg PO BEDTIME [facility]; Protocol Last Admin: 03/14/22 19:39 Dose: 3 mg Prazosin HCl (Prazosin Hcl 1 Mg Capsule) 1 mg PO BID@0900,1500 [facility]; Protocol Last Admin: 03/15/22 14:55 Dose: 1 mg Quetiapine Fumarate (Quetiapine Fumarate 300 Mg Tablet) 300 mg PO BEDTIME [facility] Last Admin: 03/14/22 19:40 Dose: 300 mg Quetiapine Fumarate (Quetiapine Fumarate 100 Mg Tablet) 100 mg PO 0900,1500 [facility] Last Admin: 03/15/22 14:55 Dose: 100 mg Topiramate (Topiramate 25 Mg Tablet) 25 mg PO DAILY [facility] Last Admin: 03/15/22 09:14 Dose: 25 mg Trazodone HCl (Trazodone Hcl 50 Mg Tablet) 50 mg PO BEDTIME PRN PRN Reason: Insomnia Allergies Allergies Allergy/AdvReac Type Severity Reaction Status Date / Time amitriptyline Allergy Palpitation Verified 03/03/22 17:02 s imipramine Allergy Palpitation Verified 03/03/22 17:02 s iodine Allergy Rash Verified 03/03/22 17:02 phenyltoloxamine [From [place]] Allergy Palpitation Verified 03/03/22 17:02 s salicylamide [From [place]] Allergy Palpitation Verified 03/03/22 17:02 s Assessment & Plan Assessment & Plan (1) Post-traumatic stress disorder: Status: Acute Code(s): F43.10 - Post-traumatic stress disorder, unspecified (2) Bipolar disorder: Status: Acute Code(s): F31.9 - Bipolar disorder, unspecified (3) Polysubstance use disorder: Status: Acute Code(s): F19.90 - Other psychoactive substance use, unspecified, uncomplicated (4) Autism: Status: Acute Code(s): F84.0 - Autistic disorder Plan 36 yo female, hx of PTSD, Bipolar Disorder, ASD,Polysubstance Use Disorder. Recent discharge from [facility], stopped meds after discharge. Reports she is in need of more follow up treatment post hospitalization, a step down . Plan: Re-establish regime and assess efficacy Collateral contacts Discuss [facility] application for services with team Devin Gallo prn Debrox ear drops bid 03/08/22- Continue current regime 03/09/22- Continue current regime 03/10/22- Add Seroquel 100 mg bid Topiramate 25 mg daily 03/11: Continue current regimen and plans 03/12: Continue current plans and regimen. Eucerin was ordered 03/13: Continue current regimen and plans. Rapid tests for various antigens ordered 03/14/22: Lorazepam bid prn agitation Change Prazosin to 1 mg bid and 3 mg hs 03/16/22: No changes today Patient educated on: therapeutic strategies Informed Consent: further education needed Reason for contiued inpatient stay Substantial Risk for: rapid decompensation Time Spent With Patient Time: Total time managing care of this patient today __20__ minutes.
[2022-03-15] MEDS: Melatonin 3 MG TABLET 9 MG PO (20:44)
[2022-03-15] MEDS: QUEtiapine Fumarate 300 MG TABLET PO (20:45)
[2022-03-15] MEDS: Prazosin HCL 1 MG CAPSULE 3 MG PO (20:45)
[2022-03-15 21:30] VITALS: BP 111/68; PULSE 92; RESP 16; TEMP 36.6; O2SAT 99
[2022-03-16 09:00] VITALS: BP 128/70; PULSE 76; RESP 16; TEMP 36.7; O2SAT 98
[2022-03-16] MEDS: Gabapentin 300 MG CAPSULE 600 MG PO ×3 (09:07→21:01)
[2022-03-16] MEDS: Omeprazole 20 MG CAPSULE.DR PO (09:07)
[2022-03-16] MEDS: Prazosin HCL 1 MG CAPSULE PO ×2 (09:08→15:11)
[2022-03-16] MEDS: QUEtiapine Fumarate 100 MG TABLET PO ×2 (09:08→15:11)
[2022-03-16] MEDS: hydrOXYzine HCL 50 MG TABLET PO ×3 (09:08→21:02)
[2022-03-16] MEDS: Ibuprofen 600 MG TABLET PO ×2 (09:08→21:02)
[2022-03-16] MEDS: Acetaminophen 325 MG TABLET 650 MG PO ×2 (09:08→21:00)
[2022-03-16] MEDS: clonazePAM 0.5 MG TABLET PO ×2 (09:09→21:00)
[2022-03-16] MEDS: metFORMIN HCl 500 MG TABLET PO (09:09)
[2022-03-16] MEDS: LORazepam 1 MG TABLET PO ×2 (09:09→21:02)
[2022-03-16] MEDS: Loratadine 10 MG TABLET PO (09:09)
[2022-03-16] MEDS: Fluticasone Propionate Nasal 16 GM SPRAY 1 SPRAY NOSTRIL-B (09:09)
[2022-03-16] MEDS: Topiramate 25 MG TABLET PO (09:09)
[2022-03-16 18:00] VITALS: BP 105/62; PULSE 85; RESP 16; TEMP 35.9; O2SAT 96
--- NOTE | 2022-03-16 18:03 | P.PNPSI_ITS ---
Subjective Subjective Date of Service: 03/15/22 Reason For Visit: Bipolar D/O w/Psychotic Features Depressed PTSD Subjective Notes: Conditional Voluntary Healthcare Proxy: No Guardianship: No Medical Problems Affecting Mental Status: No Interim History: COVID + Pt feeling some improvement, yet feeling ill. Not wanting much interaction today. Retracted three day notice Asking for Tylenol prn. No allergy per pt report-this was an error she states Medication Compliance: Yes Side effects from medications: No Attending Groups: No Review of Systems Acute medical concerns: No Medical Review of Systems: unchanged Mental Status Exam Mental Status Exam Patient Appearance: Fatigued Patient Orientation: Person, Place, Time and Situation Level of Consciousness: Alert Patient Behavior: Appropriate, Talkative and Cooperative Mood Description: Labile Affect Description: Labile Patient Cognition Impaired: No Ability to Follow Directions: Good Speech Pattern: Clear and Spontaneous Speech Memory Description: Intact Hallucinations: None Delusions: Not Present Thought Process: Intact Thought Content: positive for Intact Depressive Symptoms: Increased Irritability, Increased Fatigue and Loss of Energy Judgement: Good Diagnostics Vital Signs (24Hr): Vital Signs - 24 hr 03/15/22 21:30 03/16/22 09:00 Temperature 97.9 F 98.1 F Pulse Rate 92 76 Respiratory Rate 16 16 Blood Pressure 111/68 128/70 Pulse Oximetry 99 98 Oxygen Delivery Method Room Air Room Air BMI result Body Mass Index 32.1 Labs Results: 03/03/22 14:14 03/11/22 08:16 Medications Medications Current Medications Acetaminophen (Acetaminophen 325 Mg Tablet) 650 mg PO Q6H PRN PRN Reason: fever, pain Last Admin: 03/16/22 09:08 Dose: 650 mg Al Hydroxide/Mg Hydroxide (Magnesium Hydrox/Alum Hydrox 30 Ml Oral.Susp) 30 ml PO Q6H PRN PRN Reason: Heartburn/Nausea Last Admin: 03/12/22 20:00 Dose: 30 ml Albuterol Sulfate (Albuterol Sulfate 90 Mcg 8 Gm Inhaler) 2 puff INHALE RQID [facility] Last Admin: 03/16/22 15:47 Dose: Not Given Chlorpromazine HCl (Chlorpromazine Hcl 100 Mg Tablet) 50 mg PO Q2H PRN PRN Reason: agitation Clonazepam (Clonazepam 0.5 Mg Tablet) 0.5 mg PO BID [facility] Last Admin: 03/16/22 09:09 Dose: 0.5 mg Fluticasone Propionate (Fluticasone Propionate Nasal 16 Gm [place]) 1 spray NOSTRIL-B BID [facility] Last Admin: 03/16/22 09:09 Dose: 1 spray Gabapentin (Gabapentin 300 Mg Capsule) 600 mg PO TID [facility] Last Admin: 03/16/22 15:11 Dose: 600 mg Hydroxyzine HCl (Hydroxyzine Hcl 50 Mg Tablet) 50 mg PO QID PRN PRN Reason: Anxiety Last Admin: 03/16/22 15:25 Dose: 50 mg Ibuprofen (Ibuprofen 600 Mg Tablet) 600 mg PO Q8H PRN PRN Reason: Pain, Mild (Pain Scale 1-3) Last Admin: 03/16/22 09:08 Dose: 600 mg Loratadine (Loratadine 10 Mg Tablet) 10 mg PO DAILY [facility] Last Admin: 03/16/22 09:09 Dose: 10 mg Lorazepam (Lorazepam 1 Mg Tablet) 1 mg PO BID PRN PRN Reason: severe anxiety,agitation Last Admin: 03/16/22 09:09 Dose: 1 mg Magnesium Hydroxide (Milk Of Magnesia 30 Ml Oral.Susp) 30 ml PO DAILY PRN PRN Reason: Constipation Melatonin (Melatonin 3 Mg Tablet) 9 mg PO BEDTIME PRN PRN Reason: Insomnia Last Admin: 03/15/22 20:44 Dose: 9 mg Metformin HCl (Metformin Hcl 500 Mg Tablet) 500 mg PO DAILY [facility] Last Admin: 03/16/22 09:09 Dose: 500 mg Multi-Ingred Cream/Lotion/Oil/Oint (Mineral Oil/Petrolatum,White 106 Gm Tube) 1 appl TOPICAL BID PRN; Protocol PRN Reason: Dry Skin Last Admin: 03/15/22 09:34 Dose: 1 appl Omeprazole (Omeprazole 20 Mg Capsule.Dr) 20 mg PO DAILY [facility] Last Admin: 03/16/22 09:07 Dose: 20 mg Polyethylene Glycol (Polyethylene Glycol 3350 17 Gm Powd.Pack) 17 gm PO DAILY PRN PRN Reason: Constipation Last Admin: 03/10/22 09:35 Dose: 17 gm Prazosin HCl (Prazosin Hcl 1 Mg Capsule) 3 mg PO BEDTIME [facility]; Protocol Last Admin: 03/15/22 20:45 Dose: 3 mg Prazosin HCl (Prazosin Hcl 1 Mg Capsule) 1 mg PO BID@0900,1500 [facility]; Protocol Last Admin: 03/16/22 15:11 Dose: 1 mg Quetiapine Fumarate (Quetiapine Fumarate 300 Mg Tablet) 300 mg PO BEDTIME [facility] Last Admin: 03/15/22 20:45 Dose: 300 mg Quetiapine Fumarate (Quetiapine Fumarate 100 Mg Tablet) 100 mg PO 0900,1500 [facility] Last Admin: 03/16/22 15:11 Dose: 100 mg Topiramate (Topiramate 25 Mg Tablet) 25 mg PO DAILY [facility] Last Admin: 03/16/22 09:09 Dose: 25 mg Trazodone HCl (Trazodone Hcl 50 Mg Tablet) 50 mg PO BEDTIME PRN PRN Reason: Insomnia Allergies Allergies Allergy/AdvReac Type Severity Reaction Status Date / Time amitriptyline Allergy Palpitation Verified 03/03/22 17:02 s imipramine Allergy Palpitation Verified 03/03/22 17:02 s iodine Allergy Rash Verified 03/03/22 17:02 phenyltoloxamine [From [place]] Allergy Palpitation Verified 03/03/22 17:02 s salicylamide [From [place]] Allergy Palpitation Verified 03/03/22 17:02 s Assessment & Plan Assessment & Plan (1) Post-traumatic stress disorder: Status: Acute Code(s): F43.10 - Post-traumatic stress disorder, unspecified (2) Bipolar disorder: Status: Acute Code(s): F31.9 - Bipolar disorder, unspecified (3) Polysubstance use disorder: Status: Acute Code(s): F19.90 - Other psychoactive substance use, unspecified, uncomplicated (4) Autism: Status: Acute Code(s): F84.0 - Autistic disorder Plan 36 yo female, hx of PTSD, Bipolar Disorder, ASD,Polysubstance Use Disorder. R ecent discharge from [facility], stopped meds after discharge. Reports she is in need of more follow up treatment post hospitalization, a step down . Plan: Re-establish regime and assess efficacy Collateral contacts Discuss [facility] application for services with team Devin Gallo prn Debrox ear drops bid 03/08/22- Continue current regime 03/09/22- Continue current regime 03/10/22- Add Seroquel 100 mg bid Topiramate 25 mg daily 03/11: Continue current regimen and plans 03/12: Continue current plans and regimen. Eucerin was ordered 03/13: Continue current regimen and plans. Rapid tests for various antigens ordered 03/14/22: Lorazepam bid prn agitation Change Prazosin to 1 mg bid and 3 mg hs 03/15/22: Acetaminophen prn added Informed Consent: understands Reason for contiued inpatient stay Substantial Risk for: rapid decompensation Time Spent With Patient Time: Total time managing care of this patient today __15__ minutes.
[2022-03-16] MEDS: Prazosin HCL 1 MG CAPSULE 3 MG PO (20:59)
[2022-03-16] MEDS: QUEtiapine Fumarate 300 MG TABLET PO (21:03)
[2022-03-17 08:32] VITALS: BP 118/72; PULSE 82; RESP 16; TEMP 36.9; O2SAT 96
[2022-03-17] MEDS: Fluticasone Propionate Nasal 16 GM SPRAY 1 SPRAY NOSTRIL-B (09:15)
[2022-03-17] MEDS: QUEtiapine Fumarate 100 MG TABLET PO (09:16)
[2022-03-17] MEDS: Gabapentin 300 MG CAPSULE 600 MG PO ×2 (09:16→20:16)
[2022-03-17] MEDS: Acetaminophen 325 MG TABLET 650 MG PO ×2 (09:16→20:37)
[2022-03-17] MEDS: clonazePAM 0.5 MG TABLET PO ×2 (09:16→20:17)
[2022-03-17] MEDS: Albuterol Sulfate 90 MCG 8 GM INHALER 2 PUFF INHALE (09:16)
[2022-03-17] MEDS: Omeprazole 20 MG CAPSULE.DR PO (09:16)
[2022-03-17] MEDS: Loratadine 10 MG TABLET PO (09:16)
[2022-03-17] MEDS: Prazosin HCL 1 MG CAPSULE PO ×2 (09:17→16:18)
[2022-03-17] MEDS: hydrOXYzine HCL 50 MG TABLET PO ×2 (09:17→20:16)
[2022-03-17] MEDS: metFORMIN HCl 500 MG TABLET PO (09:17)
[2022-03-17] MEDS: Topiramate 25 MG TABLET PO (09:17)
[2022-03-17] MEDS: LORazepam 1 MG TABLET PO ×2 (09:17→20:17)
[2022-03-17] MEDS: Ibuprofen 600 MG TABLET PO ×2 (09:27→20:16)
[2022-03-17 11:06] LABS: Estimated Glomerular Filt Rate > 60
[2022-03-17] MEDS: QUEtiapine Fumarate 50 MG TABLET 150 MG PO (16:19)
[2022-03-17 18:00] VITALS: BP 109/62; PULSE 79; RESP 16; TEMP 36.4; O2SAT 98
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
[2022-03-17] MEDS: Prazosin HCL 1 MG CAPSULE 3 MG PO (20:16)
[2022-03-17] MEDS: QUEtiapine Fumarate 300 MG TABLET PO (20:17)
[2022-03-17] MEDS: Melatonin 3 MG TABLET 9 MG PO (20:37)
[2022-03-18 10:40] VITALS: BP 117/78; PULSE 87; TEMP 36.7
[2022-03-18] MEDS: QUEtiapine Fumarate 50 MG TABLET 150 MG PO ×2 (10:46→17:35)
[2022-03-18] MEDS: Topiramate 25 MG TABLET 50 MG PO (10:46)
[2022-03-18] MEDS: Gabapentin 300 MG CAPSULE 600 MG PO ×3 (10:46→20:32)
[2022-03-18] MEDS: Loratadine 10 MG TABLET PO (10:47)
[2022-03-18] MEDS: clonazePAM 0.5 MG TABLET PO ×2 (10:47→20:50)
[2022-03-18] MEDS: metFORMIN HCl 500 MG TABLET PO (10:47)
[2022-03-18] MEDS: Omeprazole 20 MG CAPSULE.DR PO (10:47)
[2022-03-18] MEDS: Prazosin HCL 1 MG CAPSULE PO ×2 (10:48→17:34)
[2022-03-18] MEDS: Fluticasone Propionate Nasal 16 GM SPRAY 1 SPRAY NOSTRIL-B (11:01)
[2022-03-18] MEDS: Ibuprofen 600 MG TABLET PO ×2 (11:02→20:31)
[2022-03-18] MEDS: Acetaminophen 325 MG TABLET 650 MG PO ×2 (11:02→17:50)
[2022-03-18] MEDS: LORazepam 1 MG TABLET PO (11:02)
[2022-03-18] MEDS: hydrOXYzine HCL 50 MG TABLET PO ×3 (11:03→20:31)
[2022-03-18 12:17] LABS: Basophils Absolute Auto 0.1 X10*3/uL (0.0-0.2); Basophils Percent Auto 0.6 % (0-2); Eosinophils Absolute Auto 2.4 X10*3/uL (0.0-0.4); Eosinophils Percent Auto 23.2 % (0-4); Hematocrit 38.2 % (37.0-47.0); Imm Gran Abs Auto 0.15 X10*3/uL (0.00-0.03); Imm Gran Pct Auto 1.4 % (0.0-0.4); Lymphocytes Percent Auto 29.2 % (20-40); MANUAL DIFF FLAG SCAN; Mean Platelet Volume 8.9 fL (9.4-12.3); Monocytes Absolute Auto 0.8 X10*3/uL (0.1-1.2); Monocytes Percent Auto 7.4 % (2-11); Neutrophils Percent Auto 38.2 % (45-73); Platelet Count 335 X10*3/uL (160-400); Red Cell Distribution Width 12.1 % (11.0-16.0); SCAN SMEAR FLAG 1; White Blood Count 10.4 X10*3/uL (4.8-10.8)
[2022-03-18 12:35] LABS: SLIDE REVIEW VERIFIED
[2022-03-18 12:38] LABS: Alanine Aminotransferase 13 U/L (0-31); Alkaline Phosphatase 90 U/L (39-117); Anion Gap 9 (12-20); Aspartate Amino Transferase 12 U/L (5-31); Bilirubin Total 0.3 mg/dL (0.0-1.0); Blood Urea Nitrogen 14 mg/dL (9-16); Calcium 10.7 mg/dL (8.4-10.2); Carbon Dioxide 24 mmol/L (22-29); Chloride 108 mmol/L (96-108); Creatinine Clr Calc Pharmacy 124.9; Estimated Glomerular Filt Rate > 60; Glucose Random 96 mg/dL (60-115); Potassium 4.3 mmol/L (3.3-5.1); Sodium 137 mmol/L (135-145); Total Protein 6.9 g/dL (6.5-8.0)
[2022-03-18 12:40] LABS: HCG Quantitative < 2 mIU/mL
[2022-03-18 18:00] VITALS: BP 133/83; PULSE 82; TEMP 36.8; O2SAT 98
--- NOTE | 2022-03-18 19:20 | HO.PSYCHPN ---
Subjective Subjective Date of Service: 03/18/22 Reason For Visit: Bipolar D/O w/Psychotic Features Depressed PTSD Subjective Notes: Conditional Voluntary Healthcare Proxy: No Guardianship: No Medical Problems Affecting Mental Status: No Interim History: Improved KAREN orozco Discussed her feelings about how others perceive her and the difficulties she has experienced with professionals in the past due to attempting to be clear and assertive, but being perceived as being non compliant and uncooperative. Full review of medications with Lyndon Medication Compliance: Yes Side effects from medications: No Attending Groups: No Review of Systems Acute medical concerns: No Medical Review of Systems: unchanged Mental Status Exam Mental Status Exam Patient Appearance: Appropriate Patient Orientation: Person, Place, Time and Situation Level of Consciousness: Alert Patient Behavior: Appropriate, Talkative and Cooperative Mood Description: Appropriate Affect Description: Appropriate Patient Cognition Impaired: No Ability to Follow Directions: Good Speech Pattern: Clear and Spontaneous Speech Memory Description: Intact Hallucinations: None Delusions: Not Present Perceptual Disturbances: Depersonalization Thought Process: Intact Thought Content: positive for Intact Abnormal Motor Activity Signs and Symptoms: Restlessness Judgement: Good Diagnostics Vital Signs (24Hr): Vital Signs - 24 hr 03/18/22 10:40 03/18/22 18:00 Temperature 98.1 F 98.2 F Pulse Rate 87 82 Blood Pressure 117/78 133/83 Pulse Oximetry 98 Oxygen Delivery Method Room Air BMI result Body Mass Index 32.1 Labs Results: 03/18/22 12:07 03/18/22 12:07 Labs: Laboratory Results - last 48 hr 03/17/22 03/18/22 03/18/22 10:36 12:07 12:07 WBC 10.4 RBC 4.20 Hgb 13.0 Hct 38.2 MCV 91.0 MCH 31.0 MCHC 34.0 RDW 12.1 Plt Count 335 MPV 8.9 L Immature Gran % (Auto) 1.4 H Neut % (Auto) 38.2 L Lymph % (Auto) 29.2 [place] % (Auto) 7.4 Eos % (Auto) 23.2 H Baso % (Auto) 0.6 Lymph # (Auto) 3.0 [place] # (Auto) 0.8 Eos # (Auto) 2.4 H Baso # (Auto) 0.1 Abs Immat Gran (auto) 0.15 H Absolute Neuts (auto) 4.0 Absolute Nucleated RBC 0.000 Nucleated RBC % (auto) 0.0 Smear Tech's Comments VERIFIED Sodium 137 Potassium 4.3 Chloride 108 Carbon Dioxide 24 Anion Gap 9 L BUN 14 Creatinine 0.89 0.82 Estim Creat Clear Calc 115.0 124.9 Estimated GFR > 60 > 60 Random Glucose 96 Calcium 10.7 H Total Bilirubin 0.3 AST 12 ALT 13 Alkaline Phosphatase 90 Total Protein 6.9 Albumin 4.0 Beta HCG, Quant < 2 Medications Medications Current Medications Acetaminophen (Acetaminophen 325 Mg Tablet) 650 mg PO Q6H PRN PRN Reason: fever, pain Last Admin: 03/18/22 17:50 Dose: 650 mg Al Hydroxide/Mg Hydroxide (Magnesium Hydrox/Alum Hydrox 30 Ml Oral.Susp) 30 ml PO Q6H PRN PRN Reason: Heartburn/Nausea Last Admin: 03/12/22 20:00 Dose: 30 ml Albuterol Sulfate (Albuterol Sulfate 90 Mcg 8 Gm Inhaler) 2 puff INHALE RQID [facility] Last Admin: 03/18/22 17:45 Dose: Not Given Chlorpromazine HCl (Chlorpromazine Hcl 100 Mg Tablet) 50 mg PO Q2H PRN PRN Reason: agitation Clonazepam (Clonazepam 0.5 Mg Tablet) 0.5 mg PO TID [facility] Fluticasone Propionate (Fluticasone Propionate Nasal 16 Gm [place]) 1 spray NOSTRIL-B BID [facility] Last Admin: 03/18/22 11:01 Dose: 1 spray Gabapentin (Gabapentin 300 Mg Capsule) 600 mg PO TID [facility] Last Admin: 03/18/22 17:34 Dose: 600 mg Hydroxyzine HCl (Hydroxyzine Hcl 50 Mg Tablet) 50 mg PO QID PRN PRN Reason: Anxiety Last Admin: 03/18/22 17:50 Dose: 50 mg Ibuprofen (Ibuprofen 600 Mg Tablet) 600 mg PO Q8H PRN PRN Reason: Pain, Mild (Pain Scale 1-3) Last Admin: 03/18/22 11:02 Dose: 600 mg Loratadine (Loratadine 10 Mg Tablet) 10 mg PO DAILY [facility] Last Admin: 03/18/22 10:47 Dose: 10 mg Magnesium Hydroxide (Milk Of Magnesia 30 Ml Oral.Susp) 30 ml PO DAILY PRN PRN Reason: Constipation Melatonin (Melatonin 3 Mg Tablet) 9 mg PO BEDTIME PRN PRN Reason: Insomnia Last Admin: 03/17/22 20:37 Dose: 9 mg Metformin HCl (Metformin Hcl 500 Mg Tablet) 500 mg PO DAILY [facility] Last Admin: 03/18/22 10:47 Dose: 500 mg Multi-Ingred Cream/Lotion/Oil/Oint (Mineral Oil/Petrolatum,White 106 Gm Tube) 1 appl TOPICAL BID PRN; Protocol PRN Reason: Dry Skin Last Admin: 03/17/22 09:15 Dose: 1 appl Omeprazole (Omeprazole 20 Mg Capsule.Dr) 20 mg PO DAILY [facility] Last Admin: 03/18/22 10:47 Dose: 20 mg Polyethylene Glycol (Polyethylene Glycol 3350 17 Gm Powd.Pack) 17 gm PO DAILY PRN PRN Reason: Constipation Last Admin: 03/10/22 09:35 Dose: 17 gm Prazosin HCl (Prazosin Hcl 1 Mg Capsule) 3 mg PO BEDTIME [facility]; Protocol Last Admin: 03/17/22 20:16 Dose: 3 mg Prazosin HCl (Prazosin Hcl 1 Mg Capsule) 1 mg PO BID@0900,1500 [facility]; Protocol Last Admin: 03/18/22 17:34 Dose: 1 mg Quetiapine Fumarate (Quetiapine Fumarate 300 Mg Tablet) 300 mg PO BEDTIME [facility] Last Admin: 03/17/22 20:17 Dose: 300 mg Quetiapine Fumarate (Quetiapine Fumarate 50 Mg Tablet) 150 mg PO 0900,1500 [facility] Last Admin: 03/18/22 17:35 Dose: 150 mg Topiramate (Topiramate 25 Mg Tablet) 50 mg PO DAILY [facility] Last Admin: 03/18/22 10:46 Dose: 50 mg Trazodone HCl (Trazodone Hcl 50 Mg Tablet) 50 mg PO BEDTIME PRN PRN Reason: Insomnia Allergies Allergies Allergy/AdvReac Type Severity Reaction Status Date / Time amitriptyline Allergy Palpitation Verified 03/03/22 17:02 s imipramine Allergy Palpitation Verified 03/03/22 17:02 s iodine Allergy Rash Verified 03/03/22 17:02 phenyltoloxamine [From [place]] Allergy Palpitation Verified 03/03/22 17:02 s salicylamide [From [place]] Allergy Palpitation Verified 03/03/22 17:02 s Assessment & Plan Assessment & Plan (1) Post-traumatic stress disorder: Status: Acute Code(s): F43.10 - Post-traumatic stress disorder, unspecified (2) Bipolar disorder: Status: Acute Code(s): F31.9 - Bipolar disorder, unspecified (3) Polysubstance use disorder: Status: Acute Code(s): F19.90 - Other psychoactive substance use, unspecified, uncomplicated (4) Autism: Status: Acute Code(s): F84.0 - Autistic disorder Plan 36 yo female, hx of PTSD, Bipolar Disorder, ASD,Polysubstance Use Disorder. Recent discharge from [facility], stopped meds after discharge. Reports she is in need of more follow up treatment post hospitalization, a step down . Plan: Re-establish regime and assess efficacy Collateral contacts Discuss [facility] application for services with team Devin Gallo prn Debrox ear drops bid 03/08/22- Continue current regime 03/09/22- Continue current regime 03/10/22- Add Seroquel 100 mg bid Topiramate 25 mg daily 03/11: Continue current regimen and plans 03/12: Continue current plans and regimen. Eucerin was ordered 03/13: Continue current regimen and plans. Rapid tests for various antigens ordered 03/14/22: Lorazepam bid prn agitation Change Prazosin to 1 mg bid and 3 mg hs 03/16/22: No changes today 03/17/22: Increase Topiramate to 50 mg daily Increase Seroquel to 150 mg at 0900, 1300 HCG, CBCD, CMP, Serum Progesterone 03/18/22. 03/18/22: Discontinue Lorazepam Patient educated on: therapeutic strategies Informed Consent: understands Reason for contiued inpatient stay Substantial Risk for: harm to self and rapid decompensation Time Spent With Patient Time: Total time managing care of this patient today _25___ minutes.
[2022-03-18] MEDS: QUEtiapine Fumarate 300 MG TABLET PO (20:31)
[2022-03-18] MEDS: Prazosin HCL 1 MG CAPSULE 3 MG PO (20:32)
[2022-03-18] MEDS: Melatonin 3 MG TABLET 9 MG PO (20:35)
[2022-03-19 08:30] VITALS: BP 125/73; PULSE 81; TEMP 36.5
[2022-03-19] MEDS: Acetaminophen 325 MG TABLET 650 MG PO ×2 (08:48→21:10)
[2022-03-19] MEDS: clonazePAM 0.5 MG TABLET PO ×3 (08:49→21:12)
[2022-03-19] MEDS: Prazosin HCL 1 MG CAPSULE PO ×2 (08:49→14:48)
[2022-03-19] MEDS: Omeprazole 20 MG CAPSULE.DR PO (08:49)
[2022-03-19] MEDS: Gabapentin 300 MG CAPSULE 600 MG PO ×3 (08:49→21:10)
[2022-03-19] MEDS: Topiramate 25 MG TABLET 50 MG PO (08:49)
[2022-03-19] MEDS: hydrOXYzine HCL 50 MG TABLET PO ×3 (08:50→21:10)
[2022-03-19] MEDS: metFORMIN HCl 500 MG TABLET PO (08:50)
[2022-03-19] MEDS: Ibuprofen 600 MG TABLET PO ×2 (08:50→21:12)
[2022-03-19] MEDS: Loratadine 10 MG TABLET PO (08:50)
[2022-03-19] MEDS: QUEtiapine Fumarate 50 MG TABLET 150 MG PO ×2 (08:51→14:48)
[2022-03-19] MEDS: Fluticasone Propionate Nasal 16 GM SPRAY 1 SPRAY NOSTRIL-B (08:51)
[2022-03-19 11:37] LABS: COVID-19 Test Positive (Negative); IDNOW Serial# 16C4AD1C
--- NOTE | 2022-03-19 15:14 | P.PNPSI_ITS ---
Subjective Subjective Date of Service: 03/19/22 Reason For Visit: Bipolar D/O w/Psychotic Features Depressed PTSD Subjective Notes: Conditional Voluntary Healthcare Proxy: No Guardianship: No Medical Problems Affecting Mental Status: No Interim History: Upset, frustrated, triggered by quarantine precautions due to COVID and by pt's perceptions of how she is treated. Feels unattended to, ignored, gaslighted by team- it should not take 40 minutes to give me a prn . Hoping for discharge zenaida y next week if services are arranged. Long discussion of how this admission has exacerbated her trauma with quarantine. Demonstrates positive, strong assertive skills and is willing to confront people she has issue with. Medication Compliance: Yes Side effects from medications: No Attending Groups: No Review of Systems Acute medical concerns: No covid sx are improving Medical Review of Systems: unchanged Mental Status Exam Mental Status Exam Patient Appearance: Appropriate Patient Orientation: Person, Place, Time and Situation Level of Consciousness: Alert Patient Behavior: Appropriate, Talkative and Cooperative Mood Description: Appropriate Affect Description: Appropriate Patient Cognition Impaired: No Ability to Follow Directions: Good Speech Pattern: Clear and Spontaneous Speech Memory Description: Intact Hallucinations: None Delusions: Not Present Perceptual Disturbances: Depersonalization Thought Process: Intact Thought Content: positive for Intact Abnormal Motor Activity Signs and Symptoms: Restlessness Judgement: Good Diagnostics Vital Signs (24Hr): Vital Signs - 24 hr 03/18/22 18:00 03/19/22 08:30 Temperature 98.2 F 97.7 F Pulse Rate 82 81 Blood Pressure 133/83 125/73 Pulse Oximetry 98 Oxygen Delivery Method Room Air BMI result Body Mass Index 32.1 Labs Results: 03/18/22 12:07 03/18/22 12:07 Labs: Laboratory Results - last 48 hr 03/18/22 03/18/22 03/19/22 12:07 12:07 11:10 WBC 10.4 RBC 4.20 Hgb 13.0 Hct 38.2 MCV 91.0 MCH 31.0 MCHC 34.0 RDW 12.1 Plt Count 335 MPV 8.9 L Immature Gran % (Auto) 1.4 H Neut % (Auto) 38.2 L Lymph % (Auto) 29.2 [place] % (Auto) 7.4 Eos % (Auto) 23.2 H Baso % (Auto) 0.6 Lymph # (Auto) 3.0 [place] # (Auto) 0.8 Eos # (Auto) 2.4 H Baso # (Auto) 0.1 Abs Immat Gran (auto) 0.15 H Absolute Neuts (auto) 4.0 Absolute Nucleated RBC 0.000 Nucleated RBC % (auto) 0.0 Smear Tech's Comments VERIFIED Sodium 137 Potassium 4.3 Chloride 108 Carbon Dioxide 24 Anion Gap 9 L BUN 14 Creatinine 0.82 Estim Creat Clear Calc 124.9 Estimated GFR > 60 Random Glucose 96 Calcium 10.7 H Total Bilirubin 0.3 AST 12 ALT 13 Alkaline Phosphatase 90 Total Protein 6.9 Albumin 4.0 Beta HCG, Quant < 2 COVID-19 (PREMA) Positive A COVID-19 Clin Com See Note Medications Medications Current Medications Acetaminophen (Acetaminophen 325 Mg Tablet) 650 mg PO Q6H PRN PRN Reason: fever, pain Last Admin: 03/19/22 08:48 Dose: 650 mg Al Hydroxide/Mg Hydroxide (Magnesium Hydrox/Alum Hydrox 30 Ml Oral.Susp) 30 ml PO Q6H PRN PRN Reason: Heartburn/Nausea Last Admin: 03/12/22 20:00 Dose: 30 ml Albuterol Sulfate (Albuterol Sulfate 90 Mcg 8 Gm Inhaler) 2 puff INHALE RQID [facility] Last Admin: 03/19/22 13:22 Dose: Not Given Chlorpromazine HCl (Chlorpromazine Hcl 100 Mg Tablet) 50 mg PO Q2H PRN PRN Reason: agitation Clonazepam (Clonazepam 0.5 Mg Tablet) 0.5 mg PO TID [facility] Last Admin: 03/19/22 14:48 Dose: 0.5 mg Fluticasone Propionate (Fluticasone Propionate Nasal 16 Gm [place]) 1 spray NOSTRIL-B BID [facility] Last Admin: 03/19/22 08:51 Dose: 1 spray Gabapentin (Gabapentin 300 Mg Capsule) 600 mg PO TID [facility] Last Admin: 03/19/22 14:48 Dose: 600 mg Hydroxyzine HCl (Hydroxyzine Hcl 50 Mg Tablet) 50 mg PO QID PRN PRN Reason: Anxiety Last Admin: 03/19/22 13:56 Dose: 50 mg Ibuprofen (Ibuprofen 600 Mg Tablet) 600 mg PO Q8H PRN PRN Reason: Pain, Mild (Pain Scale 1-3) Last Admin: 03/19/22 08:50 Dose: 600 mg Loratadine (Loratadine 10 Mg Tablet) 10 mg PO DAILY [facility] Last Admin: 03/19/22 08:50 Dose: 10 mg Magnesium Hydroxide (Milk Of Magnesia 30 Ml Oral.Susp) 30 ml PO DAILY PRN PRN Reason: Constipation Melatonin (Melatonin 3 Mg Tablet) 9 mg PO BEDTIME PRN PRN Reason: Insomnia Last Admin: 03/18/22 20:35 Dose: 9 mg Metformin HCl (Metformin Hcl 500 Mg Tablet) 500 mg PO DAILY [facility] Last Admin: 03/19/22 08:50 Dose: 500 mg Multi-Ingred Cream/Lotion/Oil/Oint (Mineral Oil/Petrolatum,White 106 Gm Tube) 1 appl TOPICAL BID PRN; Protocol PRN Reason: Dry Skin Last Admin: 03/17/22 09:15 Dose: 1 appl Omeprazole (Omeprazole 20 Mg Capsule.Dr) 20 mg PO DAILY [facility] Last Admin: 03/19/22 08:49 Dose: 20 mg Polyethylene Glycol (Polyethylene Glycol 3350 17 Gm Powd.Pack) 17 gm PO DAILY PRN PRN Reason: Constipation Last Admin: 03/10/22 09:35 Dose: 17 gm Prazosin HCl (Prazosin Hcl 1 Mg Capsule) 3 mg PO BEDTIME [facility]; Protocol Last Admin: 03/18/22 20:32 Dose: 3 mg Prazosin HCl (Prazosin Hcl 1 Mg Capsule) 1 mg PO BID@0900,1500 [facility]; Protocol Last Admin: 03/19/22 14:48 Dose: 1 mg Quetiapine Fumarate (Quetiapine Fumarate 300 Mg Tablet) 300 mg PO BEDTIME [facility] Last Admin: 03/18/22 20:31 Dose: 300 mg Quetiapine Fumarate (Quetiapine Fumarate 50 Mg Tablet) 150 mg PO 0900,1500 [facility] Last Admin: 03/19/22 14:48 Dose: 150 mg Topiramate (Topiramate 25 Mg Tablet) 50 mg PO DAILY [facility] Last Admin: 03/19/22 08:49 Dose: 50 mg Trazodone HCl (Trazodone Hcl 50 Mg Tablet) 50 mg PO BEDTIME PRN PRN Reason: Insomnia Allergies Allergies Allergy/AdvReac Type Severity Reaction Status Date / Time amitriptyline Allergy Palpitation Verified 03/03/22 17:02 s imipramine Allergy Palpitation Verified 03/03/22 17:02 s iodine Allergy Rash Verified 03/03/22 17:02 phenyltoloxamine [From [place]] Allergy Palpitation Verified 03/03/22 17:02 s salicylamide [From [place]] Allergy Palpitation Verified 03/03/22 17:02 s Assessment & Plan Assessment & Plan (1) Post-traumatic stress disorder: Status: Acute Code(s): F43.10 - Post-traumatic stress disorder, unspecified (2) Bipolar disorder: Status: Acute Code(s): F31.9 - Bipolar disorder, unspecified (3) Polysubstance use disorder: Status: Acute Code(s): F19.90 - Other psychoactive substance use, unspecified, uncomplicated (4) Autism: Status: Acute Code(s): F84.0 - Autistic disorder Plan 36 yo female, hx of PTSD, Bipolar Disorder, ASD,Polysubstance Use Disorder. Recent discharge from [facility], stopped meds after discharge. Reports she is in need of more follow up treatment post hospitalization, a step down . Plan: Re-establish regime and assess efficacy Collateral contacts Discuss [facility] application for services with team Devin Gallo prn Debrox ear drops bid 03/08/22- Continue current regime 03/09/22- Continue current regime 03/10/22- Add Seroquel 100 mg bid Topiramate 25 mg daily 03/11: Continue current regimen and plans 03/12: Continue current plans and regimen. Eucerin was ordered 03/13: Continue current regimen and plans. Rapid tests for various antigens ordered 03/14/22: Lorazepam bid prn agitation Change Prazosin to 1 mg bid and 3 mg hs 03/16/22: No changes today 03/17/22: Increase Topiramate to 50 mg daily Increase Seroquel to 150 mg at 0900, 1300 HCG, CBCD, CMP, Serum Progesterone 03/18/22. 03/18/22: Discontinue Lorazepam 03/19/22: Continue current regime. Patient educated on: therapeutic strategies Informed Consent: understands Reason for contiued inpatient stay Substantial Risk for: harm to self and rapid decompensation Time Spent With Patient Time: Total time managing care of this patient today __20__ minutes.
[2022-03-19] MEDS: Prazosin HCL 1 MG CAPSULE 3 MG PO (21:11)
[2022-03-19] MEDS: QUEtiapine Fumarate 300 MG TABLET PO (21:12)
[2022-03-19] MEDS: Melatonin 3 MG TABLET 9 MG PO (21:13)
[2022-03-20 08:30] VITALS: BP 123/84; PULSE 91; TEMP 36.1
[2022-03-20] MEDS: Topiramate 25 MG TABLET 50 MG PO (09:42)
[2022-03-20] MEDS: QUEtiapine Fumarate 50 MG TABLET 150 MG PO ×2 (09:42→14:03)
[2022-03-20] MEDS: metFORMIN HCl 500 MG TABLET PO (09:42)
[2022-03-20] MEDS: Ibuprofen 600 MG TABLET PO ×2 (09:43→20:45)
[2022-03-20] MEDS: clonazePAM 0.5 MG TABLET PO ×3 (09:43→20:45)
[2022-03-20] MEDS: hydrOXYzine HCL 50 MG TABLET PO ×2 (09:43→20:44)
[2022-03-20] MEDS: Prazosin HCL 1 MG CAPSULE PO ×2 (09:43→14:03)
[2022-03-20] MEDS: Omeprazole 20 MG CAPSULE.DR PO (09:43)
[2022-03-20] MEDS: Loratadine 10 MG TABLET PO (09:43)
[2022-03-20] MEDS: Acetaminophen 325 MG TABLET 650 MG PO ×2 (09:44→20:45)
[2022-03-20] MEDS: Gabapentin 300 MG CAPSULE 600 MG PO ×3 (09:44→20:44)
[2022-03-20 18:00] VITALS: BP 117/73; PULSE 86; TEMP 36.6; O2SAT 99
--- NOTE | 2022-03-20 19:08 | HO.PSYCHPN ---
Subjective Subjective Date of Service: 03/20/22 Reason For Visit: Bipolar D/O w/Psychotic Features Depressed PTSD Subjective Notes: Conditional Voluntary Healthcare Proxy: No Guardianship: No Medical Problems Affecting Mental Status: No Interim History: Continues on quarantine. Multiple issues with her perception of lack of team response to her needs. Quarantine is triggering of her PTSD- defines this as assaultive and gaslighting to her trauma Discussing discharge planning Reports sleep is good Medication Compliance: Yes Side effects from medications: No Attending Groups: No Review of Systems Acute medical concerns: No Medical Review of Systems: unchanged Mental Status Exam Mental Status Exam Patient Appearance: Appropriate Patient Orientation: Person, Place, Time and Situation Level of Consciousness: Alert Patient Behavior: Appropriate, Talkative and Cooperative Mood Description: Appropriate Affect Description: Appropriate Patient Cognition Impaired: No Ability to Follow Directions: Good Speech Pattern: Clear and Spontaneous Speech Memory Description: Intact Hallucinations: None Delusions: Not Present Perceptual Disturbances: Depersonalization Thought Process: Intact Thought Content: positive for Intact Abnormal Motor Activity Signs and Symptoms: Restlessness Judgement: Good Diagnostics Vital Signs (24Hr): Vital Signs - 24 hr 03/20/22 08:30 Temperature 97 F Pulse Rate 91 Blood Pressure 123/84 BMI result Body Mass Index 32.1 Labs Results: 03/18/22 12:07 03/18/22 12:07 Labs: Laboratory Results - last 48 hr 03/19/22 11:10 COVID-19 (PREMA) Positive A COVID-19 Clin Com See Note Medications Medications Current Medications Acetaminophen (Acetaminophen 325 Mg Tablet) 650 mg PO Q6H PRN PRN Reason: fever, pain Last Admin: 03/20/22 09:44 Dose: 650 mg Al Hydroxide/Mg Hydroxide (Magnesium Hydrox/Alum Hydrox 30 Ml Oral.Susp) 30 ml PO Q6H PRN PRN Reason: Heartburn/Nausea Last Admin: 03/12/22 20:00 Dose: 30 ml Albuterol Sulfate (Albuterol Sulfate 90 Mcg 8 Gm Inhaler) 2 puff INHALE RQID [facility] Last Admin: 03/20/22 14:38 Dose: Not Given Chlorpromazine HCl (Chlorpromazine Hcl 100 Mg Tablet) 50 mg PO Q2H PRN PRN Reason: agitation Clonazepam (Clonazepam 0.5 Mg Tablet) 0.5 mg PO TID [facility] Last Admin: 03/20/22 14:03 Dose: 0.5 mg Fluticasone Propionate (Fluticasone Propionate Nasal 16 Gm [place]) 1 spray NOSTRIL-B BID [facility] Last Admin: 03/20/22 11:34 Dose: Not Given Gabapentin (Gabapentin 300 Mg Capsule) 600 mg PO TID [facility] Last Admin: 03/20/22 14:03 Dose: 600 mg Hydroxyzine HCl (Hydroxyzine Hcl 50 Mg Tablet) 50 mg PO QID PRN PRN Reason: Anxiety Last Admin: 03/20/22 09:43 Dose: 50 mg Ibuprofen (Ibuprofen 600 Mg Tablet) 600 mg PO Q8H PRN PRN Reason: Pain, Mild (Pain Scale 1-3) Last Admin: 03/20/22 09:43 Dose: 600 mg Loratadine (Loratadine 10 Mg Tablet) 10 mg PO DAILY [facility] Last Admin: 03/20/22 09:43 Dose: 10 mg Magnesium Hydroxide (Milk Of Magnesia 30 Ml Oral.Susp) 30 ml PO DAILY PRN PRN Reason: Constipation Melatonin (Melatonin 3 Mg Tablet) 9 mg PO BEDTIME PRN PRN Reason: Insomnia Last Admin: 03/19/22 21:13 Dose: 9 mg Metformin HCl (Metformin Hcl 500 Mg Tablet) 500 mg PO DAILY [facility] Last Admin: 03/20/22 09:42 Dose: 500 mg Multi-Ingred Cream/Lotion/Oil/Oint (Mineral Oil/Petrolatum,White 106 Gm Tube) 1 appl TOPICAL BID PRN; Protocol PRN Reason: Dry Skin Last Admin: 03/17/22 09:15 Dose: 1 appl Omeprazole (Omeprazole 20 Mg Capsule.Dr) 20 mg PO DAILY [facility] Last Admin: 03/20/22 09:43 Dose: 20 mg Polyethylene Glycol (Polyethylene Glycol 3350 17 Gm Powd.Pack) 17 gm PO DAILY PRN PRN Reason: Constipation Last Admin: 03/10/22 09:35 Dose: 17 gm Prazosin HCl (Prazosin Hcl 1 Mg Capsule) 3 mg PO BEDTIME [facility]; Protocol Last Admin: 03/19/22 21:11 Dose: 3 mg Prazosin HCl (Prazosin Hcl 1 Mg Capsule) 1 mg PO BID@0900,1500 [facility]; Protocol Last Admin: 03/20/22 14:03 Dose: 1 mg Quetiapine Fumarate (Quetiapine Fumarate 300 Mg Tablet) 300 mg PO BEDTIME [facility] Last Admin: 03/19/22 21:12 Dose: 300 mg Quetiapine Fumarate (Quetiapine Fumarate 50 Mg Tablet) 150 mg PO 0900,1500 [facility] Last Admin: 03/20/22 14:03 Dose: 150 mg Topiramate (Topiramate 25 Mg Tablet) 50 mg PO DAILY [facility] Last Admin: 03/20/22 09:42 Dose: 50 mg Trazodone HCl (Trazodone Hcl 50 Mg Tablet) 50 mg PO BEDTIME PRN PRN Reason: Insomnia Allergies Allergies Allergy/AdvReac Type Severity Reaction Status Date / Time amitriptyline Allergy Palpitation Verified 03/03/22 17:02 s imipramine Allergy Palpitation Verified 03/03/22 17:02 s iodine Allergy Rash Verified 03/03/22 17:02 phenyltoloxamine [From [place]] Allergy Palpitation Verified 03/03/22 17:02 s salicylamide [From [place]] Allergy Palpitation Verified 03/03/22 17:02 s Assessment & Plan Assessment & Plan (1) Post-traumatic stress disorder: Status: Acute Code(s): F43.10 - Post-traumatic stress disorder, unspecified (2) Bipolar disorder: Status: Acute Code(s): F31.9 - Bipolar disorder, unspecified (3) Polysubstance use disorder: Status: Acute Code(s): F19.90 - Other psychoactive substance use, unspecified, uncomplicated (4) Autism: Status: Acute Code(s): F84.0 - Autistic disorder Plan 36 yo female, hx of PTSD, Bipolar Disorder, ASD,Polysubstance Use Disorder. Recent discharge from [facility], stopped meds after discharge. Reports she is in need of more follow up treatment post hospitalization, a step down . Plan: Re-establish regime and assess efficacy Collateral contacts Discuss [facility] application for services with team Devin Gallo prn Debrox ear drops bid 03/08/22- Continue current regime 03/09/22- Continue current regime 03/10/22- Add Seroquel 100 mg bid Topiramate 25 mg daily 03/11: Continue current regimen and plans 03/12: Continue current plans and regimen. Eucerin was ordered 03/13: Continue current regimen and plans. Rapid tests for various antigens ordered 03/14/22: Lorazepam bid prn agitation Change Prazosin to 1 mg bid and 3 mg hs 03/16/22: No changes today 03/17/22: Increase Topiramate to 50 mg daily Increase Seroquel to 150 mg at 0900, 1300 HCG, CBCD, CMP, Serum Progesterone 03/18/22. 03/18/22: Discontinue Lorazepam 03/19/22: Continue current regime. 03/20/22: Continue current plan and regime Informed Consent: understands and further education needed Reason for contiued inpatient stay Substantial Risk for: rapid decompensation Time Spent With Patient Time: Total time managing care of this patient today __25__ minutes.
[2022-03-20] MEDS: Prazosin HCL 1 MG CAPSULE 3 MG PO (20:44)
[2022-03-20] MEDS: QUEtiapine Fumarate 300 MG TABLET PO (20:45)
[2022-03-20] MEDS: traZODone HCL 50 MG TABLET PO (20:45)
[2022-03-21 08:07] VITALS: BP 121/72; PULSE 72; RESP 16; TEMP 36.8; O2SAT 98
[2022-03-21] MEDS: Topiramate 25 MG TABLET 50 MG PO (09:23)
[2022-03-21] MEDS: Prazosin HCL 1 MG CAPSULE PO ×2 (09:23→14:21)
[2022-03-21] MEDS: metFORMIN HCl 500 MG TABLET PO (09:23)
[2022-03-21] MEDS: Gabapentin 300 MG CAPSULE 600 MG PO ×3 (09:23→21:51)
[2022-03-21] MEDS: clonazePAM 0.5 MG TABLET PO ×3 (09:23→21:51)
[2022-03-21] MEDS: Omeprazole 20 MG CAPSULE.DR PO (09:23)
[2022-03-21] MEDS: QUEtiapine Fumarate 50 MG TABLET 150 MG PO ×2 (09:23→14:20)
[2022-03-21] MEDS: Loratadine 10 MG TABLET PO (09:24)
[2022-03-21] MEDS: Fluticasone Propionate Nasal 16 GM SPRAY 1 SPRAY NOSTRIL-B ×2 (09:24→22:18)
[2022-03-21] MEDS: Acetaminophen 325 MG TABLET 650 MG PO (09:24)
[2022-03-21] MEDS: hydrOXYzine HCL 50 MG TABLET PO ×3 (09:24→21:53)
[2022-03-21] MEDS: Albuterol Sulfate 90 MCG 8 GM INHALER 2 PUFF INHALE (09:24)
--- NOTE | 2022-03-21 12:17 | HO.PSYCHPN ---
Subjective Subjective Date of Service: 03/21/22 Reason For Visit: Bipolar D/O w/Psychotic Features Depressed PTSD Subjective Notes: Conditional Voluntary Healthcare Proxy: No Guardianship: No Medical Problems Affecting Mental Status: No Interim History: Planning discharge to residential for 03/22/22. Reports feeling tired today-cannot wait to break quarantine- I am really sick of this room . Review of recent labs with pt Discussed medications and dosages and her history of use of medications. Current regime appears to be of use she reports. Medication Compliance: Yes Side effects from medications: No Attending Groups: No Review of Systems Acute medical concerns: No Medical Review of Systems: unchanged Mental Status Exam Mental Status Exam Patient Appearance: Fatigued Patient Orientation: Person, Place, Time and Situation Level of Consciousness: Alert Patient Behavior: Talkative and Good Eye Contact Mood Description: Appropriate Affect Description: Appropriate Patient Cognition Impaired: No Ability to Follow Directions: Good Speech Pattern: Spontaneous Speech Memory Description: Episodic Impaired Hallucinations: None Delusions: Not Present Thought Process: Goal Oriented Thought Content: positive for Goal Oriented Depressive Symptoms: Increased Fatigue Abnormal Motor Activity Signs and Symptoms: Restlessness Judgement: Fair Diagnostics Vital Signs (24Hr): Vital Signs - 24 hr 03/20/22 18:00 03/21/22 08:07 Temperature 97.8 F 98.2 F Pulse Rate 86 72 Respiratory Rate 16 Blood Pressure 117/73 121/72 Pulse Oximetry 99 98 Oxygen Delivery Method Room Air Room Air BMI result Body Mass Index 32.1 Labs Results: 03/18/22 12:07 03/18/22 12:07 Medications Medications Current Medications Acetaminophen (Acetaminophen 325 Mg Tablet) 650 mg PO Q6H PRN PRN Reason: fever, pain Last Admin: 03/21/22 09:24 Dose: 650 mg Al Hydroxide/Mg Hydroxide (Magnesium Hydrox/Alum Hydrox 30 Ml Oral.Susp) 30 ml PO Q6H PRN PRN Reason: Heartburn/Nausea Last Admin: 03/12/22 20:00 Dose: 30 ml Albuterol Sulfate (Albuterol Sulfate 90 Mcg 8 Gm Inhaler) 2 puff INHALE ID [facility] Last Admin: 03/21/22 12:11 Dose: Not Given Chlorpromazine HCl (Chlorpromazine Hcl 100 Mg Tablet) 50 mg PO Q2H PRN PRN Reason: agitation Clonazepam (Clonazepam 0.5 Mg Tablet) 0.5 mg PO TID [facility] Last Admin: 03/21/22 09:23 Dose: 0.5 mg Fluticasone Propionate (Fluticasone Propionate Nasal 16 Gm [place]) 1 spray NOSTRIL-B BID [facility] Last Admin: 03/21/22 09:24 Dose: 1 spray Gabapentin (Gabapentin 300 Mg Capsule) 600 mg PO TID [facility] Last Admin: 03/21/22 09:23 Dose: 600 mg Hydroxyzine HCl (Hydroxyzine Hcl 50 Mg Tablet) 50 mg PO QID PRN PRN Reason: Anxiety Last Admin: 03/21/22 09:24 Dose: 50 mg Ibuprofen (Ibuprofen 600 Mg Tablet) 600 mg PO Q8H PRN PRN Reason: Pain, Mild (Pain Scale 1-3) Last Admin: 03/20/22 20:45 Dose: 600 mg Loratadine (Loratadine 10 Mg Tablet) 10 mg PO DAILY [facility] Last Admin: 03/21/22 09:24 Dose: 10 mg Magnesium Hydroxide (Milk Of Magnesia 30 Ml Oral.Susp) 30 ml PO DAILY PRN PRN Reason: Constipation Melatonin (Melatonin 3 Mg Tablet) 9 mg PO BEDTIME PRN PRN Reason: Insomnia Last Admin: 03/19/22 21:13 Dose: 9 mg Metformin HCl (Metformin Hcl 500 Mg Tablet) 500 mg PO DAILY [facility] Last Admin: 03/21/22 09:23 Dose: 500 mg Multi-Ingred Cream/Lotion/Oil/Oint (Mineral Oil/Petrolatum,White 106 Gm Tube) 1 appl TOPICAL BID PRN; Protocol PRN Reason: Dry Skin Last Admin: 03/21/22 08:15 Dose: 1 appl Omeprazole (Omeprazole 20 Mg Capsule.Dr) 20 mg PO DAILY [facility] Last Admin: 03/21/22 09:23 Dose: 20 mg Polyethylene Glycol (Polyethylene Glycol 3350 17 Gm Powd.Pack) 17 gm PO DAILY PRN PRN Reason: Constipation Last Admin: 03/10/22 09:35 Dose: 17 gm Prazosin HCl (Prazosin Hcl 1 Mg Capsule) 3 mg PO BEDTIME [facility]; Protocol Last Admin: 03/20/22 20:44 Dose: 3 mg Prazosin HCl (Prazosin Hcl 1 Mg Capsule) 1 mg PO BID@0900,1500 [facility]; Protocol Last Admin: 03/21/22 09:23 Dose: 1 mg Quetiapine Fumarate (Quetiapine Fumarate 300 Mg Tablet) 300 mg PO BEDTIME [facility] Last Admin: 03/20/22 20:45 Dose: 300 mg Quetiapine Fumarate (Quetiapine Fumarate 50 Mg Tablet) 150 mg PO 0900,1500 [facility] Last Admin: 03/21/22 09:23 Dose: 150 mg Topiramate (Topiramate 25 Mg Tablet) 50 mg PO DAILY [facility] Last Admin: 03/21/22 09:23 Dose: 50 mg Trazodone HCl (Trazodone Hcl 50 Mg Tablet) 50 mg PO BEDTIME PRN PRN Reason: Insomnia Last Admin: 03/20/22 20:45 Dose: 50 mg Allergies Allergies Allergy/AdvReac Type Severity Reaction Status Date / Time amitriptyline Allergy Palpitation Verified 03/03/22 17:02 s imipramine Allergy Palpitation Verified 03/03/22 17:02 s iodine Allergy Rash Verified 03/03/22 17:02 phenyltoloxamine [From [place]] Allergy Palpitation Verified 03/03/22 17:02 s salicylamide [From [place]] Allergy Palpitation Verified 03/03/22 17:02 s Assessment & Plan Assessment & Plan (1) Post-traumatic stress disorder: Status: Acute Code(s): F43.10 - Post-traumatic stress disorder, unspecified (2) Bipolar disorder: Status: Acute Code(s): F31.9 - Bipolar disorder, unspecified (3) Polysubstance use disorder: Status: Acute Code(s): F19.90 - Other psychoactive substance use, unspecified, uncomplicated (4) Autism: Status: Acute Code(s): F84.0 - Autistic disorder Plan 36 yo female, hx of PTSD, Bipolar Disorder, ASD,Polysubstance Use Disorder. Recent discharge from [facility], stopped meds after discharge. Reports she is in need of more follow up treatment post hospitalization, a step down . Plan: Re-establish regime and assess efficacy Collateral contacts Discuss [facility] application for services with team Devin Gallo prn Debrox ear drops bid 03/08/22- Continue current regime 03/09/22- Continue current regime 03/10/22- Add Seroquel 100 mg bid Topiramate 25 mg daily 03/11: Continue current regimen and plans 03/12: Continue current plans and regimen. Eucerin was ordered 03/13: Continue current regimen and plans. Rapid tests for various antigens ordered 03/14/22: Lorazepam bid prn agitation Change Prazosin to 1 mg bid and 3 mg hs 03/16/22: No changes today 03/17/22: Increase Topiramate to 50 mg daily Increase Seroquel to 150 mg at 0900, 1300 HCG, CBCD, CMP, Serum Progesterone 03/18/22. 03/18/22: Discontinue Lorazepam 03/19/22: Continue current regime. 03/20/22: Continue current plan and regime 03/21/22: Discharge 03/22/22 Informed Consent: understands Reason for contiued inpatient stay Substantial Risk for: stable for discharge Time Spent With Patient Time: Total time managing care of this patient today _15___ minutes.
[2022-03-21 14:14] VITALS: BP 117/62; PULSE 86; RESP 16; TEMP 36.8; O2SAT 98
[2022-03-21 18:00] VITALS: BP 119/59; PULSE 90; TEMP 36.6; O2SAT 100
[2022-03-21] MEDS: chlorproMAZINE HCl 100 MG TABLET 50 MG PO (21:50)
[2022-03-21] MEDS: Ibuprofen 600 MG TABLET PO (21:52)
[2022-03-21] MEDS: Melatonin 3 MG TABLET 9 MG PO (21:52)
[2022-03-21] MEDS: QUEtiapine Fumarate 300 MG TABLET PO (21:53)
[2022-03-21] MEDS: traZODone HCL 50 MG TABLET PO (21:53)
[2022-03-21] MEDS: Prazosin HCL 1 MG CAPSULE 3 MG PO (21:54)
[2022-03-22 08:50] VITALS: BP 119/76; PULSE 82; RESP 16; TEMP 36.8; O2SAT 98
[2022-03-22] MEDS: Acetaminophen 325 MG TABLET 650 MG PO ×2 (08:53→20:58)
[2022-03-22] MEDS: Gabapentin 300 MG CAPSULE 600 MG PO ×3 (08:53→20:58)
[2022-03-22] MEDS: Topiramate 25 MG TABLET 50 MG PO (08:54)
[2022-03-22] MEDS: Loratadine 10 MG TABLET PO (08:54)
[2022-03-22] MEDS: QUEtiapine Fumarate 50 MG TABLET 150 MG PO ×2 (08:54→14:45)
[2022-03-22] MEDS: Prazosin HCL 1 MG CAPSULE PO ×2 (08:54→14:45)
[2022-03-22] MEDS: clonazePAM 0.5 MG TABLET PO ×3 (08:54→20:58)
[2022-03-22] MEDS: Omeprazole 20 MG CAPSULE.DR PO (08:54)
[2022-03-22] MEDS: metFORMIN HCl 500 MG TABLET PO (08:54)
[2022-03-22] MEDS: hydrOXYzine HCL 50 MG TABLET PO ×2 (08:55→20:58)
[2022-03-22] MEDS: Fluticasone Propionate Nasal 16 GM SPRAY 1 SPRAY NOSTRIL-B ×2 (09:24→20:58)
[2022-03-22 14:43] VITALS: BP 112/62; PULSE 82; RESP 16; TEMP 36.8; O2SAT 98
[2022-03-22 18:00] VITALS: BP 125/90; PULSE 85; RESP 16; TEMP 37.1; O2SAT 100
--- NOTE | 2022-03-22 18:31 | HO.PSYCHPN ---
Subjective Subjective Date of Service: 03/22/22 Reason For Visit: Bipolar D/O w/Psychotic Features Depressed PTSD Subjective Notes: Conditional Voluntary Healthcare Proxy: No Guardianship: No Medical Problems Affecting Mental Status: No Interim History: Quarantine has ended for pt today. Team has secured a placement for discharge on 03/23. Pt is pleased, asks to make sure we send her prn hydroxyzine Medication Compliance: Yes Side effects from medications: No Attending Groups: No Review of Systems Acute medical concerns: No Medical Review of Systems: unchanged Mental Status Exam Mental Status Exam Patient Appearance: Fatigued Patient Orientation: Person, Place, Time and Situation Level of Consciousness: Alert Patient Behavior: Talkative and Good Eye Contact Mood Description: Appropriate Affect Description: Appropriate Patient Cognition Impaired: No Ability to Follow Directions: Good Speech Pattern: Spontaneous Speech Memory Description: Episodic Impaired Hallucinations: None Delusions: Not Present Thought Process: Goal Oriented Thought Content: positive for Goal Oriented Depressive Symptoms: Increased Fatigue Abnormal Motor Activity Signs and Symptoms: Restlessness Judgement: Fair Diagnostics Vital Signs (24Hr): Vital Signs - 24 hr 03/22/22 08:50 03/22/22 14:43 Temperature 98.2 F 98.2 F Pulse Rate 82 82 Respiratory Rate 16 16 Blood Pressure 119/76 112/62 Pulse Oximetry 98 98 Oxygen Delivery Method Room Air Room Air BMI result Body Mass Index 32.1 Labs Results: 03/18/22 12:07 03/18/22 12:07 Medications Medications Current Medications Acetaminophen (Acetaminophen 325 Mg Tablet) 650 mg PO Q6H PRN PRN Reason: fever, pain Last Admin: 03/22/22 08:53 Dose: 650 mg Al Hydroxide/Mg Hydroxide (Magnesium Hydrox/Alum Hydrox 30 Ml Oral.Susp) 30 ml PO Q6H PRN PRN Reason: Heartburn/Nausea Last Admin: 03/12/22 20:00 Dose: 30 ml Albuterol Sulfate (Albuterol Sulfate 90 Mcg 8 Gm Inhaler) 2 puff INHALE RQID [facility] Last Admin: 03/22/22 16:51 Dose: Not Given Chlorpromazine HCl (Chlorpromazine Hcl 100 Mg Tablet) 50 mg PO Q2H PRN PRN Reason: agitation Last Admin: 03/21/22 21:50 Dose: 50 mg Clonazepam (Clonazepam 0.5 Mg Tablet) 0.5 mg PO TID [facility] Last Admin: 03/22/22 14:46 Dose: 0.5 mg Fluticasone Propionate (Fluticasone Propionate Nasal 16 Gm [place]) 1 spray NOSTRIL-B BID [facility] Last Admin: 03/22/22 09:24 Dose: 1 spray Gabapentin (Gabapentin 300 Mg Capsule) 600 mg PO TID [facility] Last Admin: 03/22/22 14:46 Dose: 600 mg Hydroxyzine HCl (Hydroxyzine Hcl 50 Mg Tablet) 50 mg PO QID PRN PRN Reason: Anxiety Last Admin: 03/22/22 08:55 Dose: 50 mg Ibuprofen (Ibuprofen 600 Mg Tablet) 600 mg PO Q8H PRN PRN Reason: Pain, Mild (Pain Scale 1-3) Last Admin: 03/21/22 21:52 Dose: 600 mg Loratadine (Loratadine 10 Mg Tablet) 10 mg PO DAILY [facility] Last Admin: 03/22/22 08:54 Dose: 10 mg Magnesium Hydroxide (Milk Of Magnesia 30 Ml Oral.Susp) 30 ml PO DAILY PRN PRN Reason: Constipation Melatonin (Melatonin 3 Mg Tablet) 9 mg PO BEDTIME PRN PRN Reason: Insomnia Last Admin: 03/21/22 21:52 Dose: 9 mg Metformin HCl (Metformin Hcl 500 Mg Tablet) 500 mg PO DAILY [facility] Last Admin: 03/22/22 08:54 Dose: 500 mg Multi-Ingred Cream/Lotion/Oil/Oint (Mineral Oil/Petrolatum,White 106 Gm Tube) 1 appl TOPICAL BID PRN; Protocol PRN Reason: Dry Skin Last Admin: 03/22/22 09:24 Dose: 1 appl Omeprazole (Omeprazole 20 Mg Capsule.Dr) 20 mg PO DAILY [facility] Last Admin: 03/22/22 08:54 Dose: 20 mg Polyethylene Glycol (Polyethylene Glycol 3350 17 Gm Powd.Pack) 17 gm PO DAILY PRN PRN Reason: Constipation Last Admin: 03/10/22 09:35 Dose: 17 gm Prazosin HCl (Prazosin Hcl 1 Mg Capsule) 3 mg PO BEDTIME [facility]; Protocol Last Admin: 03/21/22 21:54 Dose: 3 mg Prazosin HCl (Prazosin Hcl 1 Mg Capsule) 1 mg PO BID@0900,1500 [facility]; Protocol Last Admin: 03/22/22 14:45 Dose: 1 mg Quetiapine Fumarate (Quetiapine Fumarate 300 Mg Tablet) 300 mg PO BEDTIME [facility] Last Admin: 03/21/22 21:53 Dose: 300 mg Quetiapine Fumarate (Quetiapine Fumarate 50 Mg Tablet) 150 mg PO 0900,1500 [facility] Last Admin: 03/22/22 14:45 Dose: 150 mg Topiramate (Topiramate 25 Mg Tablet) 50 mg PO DAILY [facility] Last Admin: 03/22/22 08:54 Dose: 50 mg Trazodone HCl (Trazodone Hcl 50 Mg Tablet) 50 mg PO BEDTIME PRN PRN Reason: Insomnia Last Admin: 03/21/22 21:53 Dose: 50 mg Allergies Allergies Allergy/AdvReac Type Severity Reaction Status Date / Time amitriptyline Allergy Palpitation Verified 03/03/22 17:02 s imipramine Allergy Palpitation Verified 03/03/22 17:02 s iodine Allergy Rash Verified 03/03/22 17:02 phenyltoloxamine [From [place]] Allergy Palpitation Verified 03/03/22 17:02 s salicylamide [From [place]] Allergy Palpitation Verified 03/03/22 17:02 s Assessment & Plan Assessment & Plan (1) Post-traumatic stress disorder: Status: Acute Code(s): F43.10 - Post-traumatic stress disorder, unspecified (2) Bipolar disorder: Status: Acute Code(s): F31.9 - Bipolar disorder, unspecified (3) Polysubstance use disorder: Status: Acute Code(s): F19.90 - Other psychoactive substance use, unspecified, uncomplicated (4) Autism: Status: Acute Code(s): F84.0 - Autistic disorder Plan 36 yo female, hx of PTSD, Bipolar Disorder, ASD,Polysubstance Use Disorder. Recent discharge from [facility], stopped meds after discharge. Reports she is in need of more follow up treatment post hospitalization, a step down . Plan: Re-establish regime and assess efficacy Collateral contacts Discuss [facility] application for services with team Devin Gallo prn Debrox ear drops bid 03/08/22- Continue current regime 03/09/22- Continue current regime 03/10/22- Add Seroquel 100 mg bid Topiramate 25 mg daily 03/11: Continue current regimen and plans 03/12: Continue current plans and regimen. Eucerin was ordered 03/13: Continue current regimen and plans. Rapid tests for various antigens ordered 03/14/22: Lorazepam bid prn agitation Change Prazosin to 1 mg bid and 3 mg hs 03/16/22: No changes today 03/17/22: Increase Topiramate to 50 mg daily Increase Seroquel to 150 mg at 0900, 1300 HCG, CBCD, CMP, Serum Progesterone 03/18/22. 03/18/22: Discontinue Lorazepam 03/19/22: Continue current regime. 03/20/22: Continue current plan and regime 03/21/22: Discharge 03/22/22 03/22/22: Discharge 03/23/22. Pt has a program and is pleased with plan of care she reports. Informed Consent: understands Reason for contiued inpatient stay Substantial Risk for: stable for discharge Time Spent With Patient Time: Total time managing care of this patient today __15__ minutes.
[2022-03-22] MEDS: chlorproMAZINE HCl 100 MG TABLET 50 MG PO (20:57)
[2022-03-22] MEDS: Prazosin HCL 1 MG CAPSULE 3 MG PO (20:57)
[2022-03-22] MEDS: Melatonin 3 MG TABLET 9 MG PO (20:57)
[2022-03-22] MEDS: QUEtiapine Fumarate 300 MG TABLET PO (20:58)
[2022-03-22] MEDS: traZODone HCL 50 MG TABLET PO (20:58)
[2022-03-23] MEDS: hydrOXYzine HCL 50 MG TABLET PO (05:55)
[2022-03-23 08:30] VITALS: BP 124/78; PULSE 86; TEMP 36.5
[2022-03-23] MEDS: Acetaminophen 325 MG TABLET 650 MG PO (08:37)
[2022-03-23] MEDS: Topiramate 25 MG TABLET 50 MG PO (08:37)
[2022-03-23] MEDS: Gabapentin 300 MG CAPSULE 600 MG PO (08:37)
[2022-03-23] MEDS: QUEtiapine Fumarate 50 MG TABLET 150 MG PO (08:37)
[2022-03-23] MEDS: Prazosin HCL 1 MG CAPSULE PO (08:37)
[2022-03-23] MEDS: metFORMIN HCl 500 MG TABLET PO (08:38)
[2022-03-23] MEDS: clonazePAM 0.5 MG TABLET PO (08:38)
[2022-03-23] MEDS: Omeprazole 20 MG CAPSULE.DR PO (08:39)
[2022-03-23] MEDS: Ibuprofen 600 MG TABLET PO (08:39)
[2022-03-23] MEDS: Loratadine 10 MG TABLET PO (08:39)
[2022-03-24 18:50] LABS: Progesterone <0.1 ng/mL
--- NOTE | 2022-04-01 10:47 | P.DS_ITS ---
DS: Providers Provider Date of Service: 03/23/22 Date of admission: 03/06/22 14:32 Date of discharge: 03/23/22 Primary care physician: [facility] Admitting clinician: Ashlee Cyr Attending physician on admission: Hunter Flanagan Attending physician on discharge: Hunter Flanagan Discharging clinician: Ashlee Cyr DS: Diagnosis Discharge Diagnosis (1) Post-traumatic stress disorder: Status: Acute (2) Bipolar disorder: Status: Acute (3) Polysubstance use disorder: Status: Acute (4) Autism: Status: Acute DS: Medications Discharge Medications Home Medications: Previous Rx's Medication Instructions Recorded albuterol sulfate 90 mcg/actuation 2 puff inhalation RQID #1 inhaler 03/22/22 aerosol inhaler (Ventolin HFA) cetirizine 10 mg tablet 1 tab PO DAILY #60 tabs 03/22/22 clonazepam 0.5 mg tablet 0.5 mg PO TID #21 tabs 03/22/22 fluticasone propionate 50 1 spray intranasal BID #1 inhaler 03/22/22 mcg/actuation nasal spray,suspension hydroxyzine pamoate 50 mg capsule 50 mg PO QID PRN Anxiety #60 caps 03/22/22 melatonin 3 mg tablet 9 mg PO BEDTIME PRN Insomnia #90 03/22/22 tabs metformin 500 mg tablet 500 mg PO DAILY #30 tabs 03/22/22 pantoprazole 40 mg tablet,delayed 40 mg PO DAILY #30 tabs 03/22/22 release prazosin 1 mg capsule 1 mg PO BID@0900,1500 #60 caps 03/22/22 prazosin 1 mg capsule 3 mg PO BEDTIME #90 caps 03/22/22 quetiapine 300 mg tablet 300 mg PO BEDTIME #30 tabs 03/22/22 topiramate 25 mg tablet 50 mg PO DAILY #60 tabs 03/22/22 trazodone 50 mg tablet 50 mg PO BEDTIME PRN Insomnia #30 03/22/22 tabs Mental Status Exam Mental Status Exam Patient Appearance: Fatigued Patient Orientation: Person, Place, Time and Situation Level of Consciousness: Alert Patient Behavior: Talkative and Good Eye Contact Mood Description: Appropriate Affect Description: Appropriate Patient Cognition Impaired: No Ability to Follow Directions: Good Speech Pattern: Spontaneous Speech Memory Description: Episodic Impaired Hallucinations: None Delusions: Not Present Thought Process: Goal Oriented Thought Content: positive for Goal Oriented Depressive Symptoms: Increased Fatigue Abnormal Motor Activity Signs and Symptoms: Restlessness Judgement: Fair Data Data Completed and Pending Completed studies during hospitalization [Text1]: 03/03/22 17:05 Urine clean catch - Urine ho top Urine Culture - Final DS: Summary Hospital Course Hospital Course: Admission to adult psychiatry for exacerbation of symptoms of Bipolar Disorder with psychosis, PTSD, Polysubstance Use Disorder and Autism. Pt did develop COVID during her admission which resolved without complications. Seroquel, Trazodone, Prazosin, Klonopin, Topiramate were titrated during admission and assisted in stabilizing mood. Pt is discharged to [facility] care and will work with their team on permanent housing as she has decided to remain in this area. Time spent discussing smoking cessation with patient: 3 to 10 minutes Status at Discharge Functional status at discharge: independent ambulation Overall status at discharge: patient is progressing back to baseline Time Spent with Patient Time attestation: Total time managing care of this patient today ____ minutes. 40 Time spent: Greater than 30 minutes Discharge Plan Discharge Anticipated Discharge Date/Time: 03/23/22 10:43 Patient Disposition: Care Home Discharge Diagnosis: Autism PTSD Bipolar Disorder Polysubstance use Referrals: Therapy Intake: Kym Freeman ([facility]) [Other] - 03/24/22 10:00 am (Appointment is in person at their office in [place] ) Psych Prescriber:Aj Cardenas ([place] [facility] [employer]) [Other] - 04/12/22 9:00 am (Appointment is in person at their office ) Discharge Medications: New prazosin 1 mg Capsule 3 mg PO BEDTIME Qty: 90 0RF Protocol: Hold for SBP< HOLD for SBP < : 90 prazosin 1 mg Capsule 1 mg PO BID@0900,1500 Qty: 60 0RF Protocol: Hold for SBP< HOLD for SBP < : 90 clonazepam 0.5 mg Tablet 0.5 mg PO TID Qty: 21 4RF topiramate 25 mg Tablet 50 mg PO DAILY Qty: 60 0RF albuterol sulfate [Ventolin HFA] 90 mcg/actuation Hfa Aerosol Inhaler 2 puff inhalation RQID Qty: 1 0RF Continued metformin 500 mg Tablet 500 mg PO DAILY Qty: 30 0RF quetiapine 300 mg Tablet 300 mg PO BEDTIME Qty: 30 0RF trazodone 50 mg Tablet 50 mg PO BEDTIME PRN (Reason: Insomnia) Qty: 30 0RF cetirizine 10 mg tablet 1 tab PO DAILY Qty: 60 0RF hydroxyzine pamoate 50 mg Capsule 50 mg PO QID PRN (Reason: Anxiety) Qty: 60 1RF melatonin 3 mg Tablet 9 mg PO BEDTIME PRN (Reason: Insomnia) Qty: 90 0RF pantoprazole 40 mg Tablet,Delayed Release (Dr/Ec) 40 mg PO DAILY Qty: 30 0RF fluticasone propionate 50 mcg/actuation spray,suspension 1 spray intranasal BID Qty: 1 0RF Discontinued albuterol 90 mcg/actuation Aerosol 2 mcg inhalation QID clonazepam 0.5 mg Tablet 0.5 mg PO BID gabapentin 300 mg Capsule 600 mg PO TID prazosin 1 mg Capsule 1 mg PO TID prazosin 2 mg Capsule 2 mg PO BEDTIME quetiapine 100 mg Tablet 100 mg PO QAM Discharge Orders: Discharge Order (Routine); Ordered 03/22/22 Ordered By: Ashlee Cyr Diet: Advance to usual diet Activity on Discharge: As tolerated Stand Alone Forms: Patient Portal Discharge page, Community Support Care Plan Goals: Maintain mood and safe behaviors Take medications as directed Practice coping skills Connect with out patient providers Health Concerns: Stable mood and behaviors Plan of Treatment: Follow up with out patient referrals Take medications as directed Assessment: Risk assessment at time of discharge:? Patient was interviewed prior to discharge and found to be fully oriented and without any SI or HI. Patient has insight and demonstrates good judgment in terms of wanting to pursue treatment. Patient is not in imminent risk of harm to self or others and has a safety plan that includes presenting to the closest ER or calling 911 if feeling unsafe.? Patient has been observed closely by nursing and unit staff throughout admission; patient has not engaged in any behaviors that suggest dangerousness to self or others and has demonstrated appropriate behaviors and impulse control Discharge Date/Time: 03/23/22 11:06
== END 2022-03-23 11:06 | disposition home or self-care (01) | DRG 885 ==
LOC: HO.ED 17:46 → HO.PM5 03-06 15:22
PROVIDERS: Physician Assistant; Physician Assistant Medical; Psychiatry & Neurology Psychiatry; Student in an Organized Health Care Education/Training Program; Admitting Provider Psychiatry & Neurology Psychiatry; Emergency Provider Student in an Organized Health Care Education/Training Program; Visit Provider Clinical Nurse Specialist Psychiatric/Mental Health, Adult
DX: F31.9 Bipolar disorder, unspecified (principal); U07.1 COVID-19; F43.10 Post-traumatic stress disorder, unspecified; F84.0 Autistic disorder; F17.210 Nicotine dependence, cigarettes, uncomplicated; Z71.6 Tobacco abuse counseling; Z88.0 Allergy status to penicillin; Z79.84 Long term (current) use of oral hypoglycemic drugs; Z79.51 Long term (current) use of inhaled steroids; Z79.899 Other long term (current) drug therapy
CPT/HCPCS: 0241U; 36415; 80053; 80061; 80307; 81001; 81003; 82077; 82565; 82607; 82746; 83036; 83690; 83735; 84144; 84439; 84443; 84702; 85025; 85610; 87086; 87491; 87591; 87635; 87651; 93005; 99285